=== PATIENT | female | born 1945 | race Caucasian/White ===

== ENCOUNTER 2018-10-02 15:20 | Observation (INO) | payer MEDICARE ==
[2018-10-02] MEDS ORDERED: Sodium Chloride 0.9% 500 ML IV ONE (16:24)
--- NOTE | 2018-10-02 16:54 | C.PDOC ---
History Of Present Illness 73-year-old female, presents to the emergency department, sent from PMD office for anemia. Patients hgb reported to be 6.8. Denies blood in stool. Patient denies hematemesis. No other complaints at this time Time Seen by Provider: 10/02/18 16:10 Chief Complaint (Nursing): Abnormal Labs History Per: Patient History/Exam Limitations: no limitations Past Medical History Reviewed: Historical Data, Nursing Documentation, Vital Signs Vital Signs: Last Vital Signs Temp 98.5 F 10/02/18 15:48 Pulse 77 10/02/18 15:48 Resp 18 10/02/18 15:48 BP 127/62 10/02/18 15:48 Pulse Ox 100 10/02/18 15:48 - Medical History PMH: Arthritis Family History: States: No Known Family Hx - Social History Hx Tobacco Use: No Hx Alcohol Use: No Hx Substance Use: No - Immunization History Hx Tetanus Toxoid Vaccination: No Hx Influenza Vaccination: Yes Hx Pneumococcal Vaccination: No Review Of Systems Constitutional: Negative for: Fever Cardiovascular: Negative for: Light Headedness Respiratory: Negative for: Shortness of Breath Gastrointestinal: Negative for: Nausea, Vomiting, Hematochezia, Hematemesis Skin: Negative for: Rash Neurological: Negative for: Weakness, Numbness, Headache, Dizziness Physical Exam - Physical Exam Appears: Non-toxic, No Acute Distress Skin: Warm, Dry, Pale, No Rash Head: Atraumatic Eye(s): bilateral: Normal Inspection Nose: Normal Oral Mucosa: Moist Lips: Normal Appearing Neck: Normal ROM Chest: Symmetrical Cardiovascular: Rhythm Regular, No Murmur Respiratory: Normal Breath Sounds, No Accessory Muscle Use Rectal: Heme Negative, Melena (sundeep) Extremity: Normal ROM, No Deformity Neurological/Psych: Oriented x3, Normal Speech ED Course And Treatment - Laboratory Results Result Diagrams: 10/03/18 07:37 10/02/18 17:30 O2 Sat by Pulse Oximetry: 100 Pulse Ox Interpretation: Normal (RA) Medical Decision Making Medical Decision Making: dark stool on exam, however ?suppliment iron from [facility]. guiac neg. macrocystic anemia. acute bleeding less likley. bun/cr normal. accpeted by dr forrester. Disposition - Disposition Disposition: HOSPITALIZED Disposition Time: 18:49 Condition: STABLE - Clinical Impression Clinical Impression: Anemia - Scribe Statement The provider has reviewed the documentation as recorded by the Scribe (mArit Solis) Provider Attestation: All medical record entries made by the Scribe were at my direction and personally dictated by me. I have reviewed the chart and agree that the record accurately reflects my personal performance of the history, physical exam, medical decision making, and the department course for this patient. I have also personally directed, reviewed, and agree with the discharge instructions and disposition. Decision To Admit - Pt Status Changed To: Hospital Disposition Of: Observation - . Bed Request Type: Regular Admitting Physician: Larisa Forrester Patient Diagnosis: Anemia
[2018-10-02 17:49] LABS: BASO % 0.6 % (0.0-2.0); EOS % 1.2 % (0.0-4.0); LYMPH # 1.6 K/uL (1.0-4.3); LYMPH % 47.6 % (20.0-40.0); MEAN CORPUSCULAR HEMOGLOBIN 39.9 pg (27.0-31.0); MEAN CORPUSCULAR HGB CONC 33.9 g/dL (33.0-37.0); MEAN PLATELET VOLUME 10.6 fL (7.2-11.7); MONO # 0.2 K/uL (0.0-0.8); MONO % 7.1 % (0.0-10.0); NEUT # 1.4 K/uL (1.8-7.0); NEUT % 43.5 % (50.0-75.0); NRBC % 0.1 % (0.0-2.0); RBC 1.73 Mil/uL (3.80-5.20); RED CELL DISTRIBUTION WIDTH 17.1 % (11.5-14.5); WHITE BLOOD COUNT 3.3 K/uL (4.8-10.8)
[2018-10-02 17:51] LABS: HEMOGLOBIN 6.9 g/dL (11.0-16.0); MEAN CELL VOLUME 117.7 fL (81.0-99.0)
[2018-10-02 18:09] LABS: ALB/GLOB RATIO 1.3 (1.0-2.1); ALBUMIN 3.8 g/dL (3.5-5.0); ALT/SGPT 34 U/L (9-52); AST/SGOT 37 U/L (14-36); BLOOD UREA NITROGEN 15 mg/dL (7-17); CALCIUM 8.4 mg/dl (8.6-10.4); GFR NON-AFRICAN AMERICAN > 60; LIPASE 40 U/L (23-300)
[2018-10-02 18:18] LABS: INR 1.1; PROTHROMBIN TIME 11.9 SECONDS (9.7-12.2)
--- NOTE | 2018-10-02 20:21 | CP.PCM.HP ---
Past Patient History - Past Social History Smoking Status: Never Smoked - MUSCULOSKELETAL/RHEUMATOLOGICAL Hx Arthritis: Yes - PSYCHIATRIC Hx Substance Use: No Meds Allergies/Adverse Reactions: Allergies Allergy/AdvReac Type Severity Reaction Status Date / Time No Known Allergies Allergy Verified 12/30/13 21:35 Physical Exam - Constitutional Appears: Well - Head Exam Head Exam: ATRAUMATIC, NORMAL INSPECTION, NORMOCEPHALIC - Eye Exam Eye Exam: EOMI, Normal appearance, PERRL Pupil Exam: NORMAL ACCOMODATION, PERRL - ENT Exam ENT Exam: Mucous Membranes Moist, Normal Exam - Neck Exam Neck exam: Positive for: Normal Inspection - Respiratory Exam Respiratory Exam: Decreased Breath Sounds - Cardiovascular Exam Cardiovascular Exam: REGULAR RHYTHM, +S1, +S2 - GI/Abdominal Exam GI & Abdominal Exam: Diminished Bowel Sounds, Soft - Rectal Exam Rectal Exam: Deferred Results - Vital Signs Recent Vital Signs: Last Vital Signs Temp 97.7 F 10/02/18 19:25 Pulse 67 10/02/18 19:25 Resp 20 10/02/18 19:25 BP 128/66 10/02/18 19:25 Pulse Ox 98 10/02/18 19:25 - Labs Result Diagrams: 10/02/18 17:30 10/02/18 17:30 Labs: Laboratory Results - last 24 hr 10/02/18 10/02/18 10/02/18 16:41 17:30 17:30 WBC 3.3 L D RBC 1.73 L Hgb 6.9 L D Hct 20.3 L MCV 117.7 H D MCH 39.9 H MCHC 33.9 RDW 17.1 H Plt Count 197 MPV 10.6 Neut % (Auto) 43.5 L Lymph % (Auto) 47.6 H [place] % (Auto) 7.1 Eos % (Auto) 1.2 Baso % (Auto) 0.6 Neut # (Auto) 1.4 L Lymph # (Auto) 1.6 [place] # (Auto) 0.2 Eos # (Auto) 0.0 Baso # (Auto) 0.0 Differential Comment PT 11.9 INR 1.1 APTT 31 Sodium Potassium Chloride Carbon Dioxide Anion Gap BUN Creatinine Est GFR ( Amer) Est GFR (Non-Af Amer) Random Glucose Calcium Total Bilirubin AST ALT Alkaline Phosphatase Troponin I Total Protein Albumin Globulin Albumin/Globulin Ratio Lipase Stool Occult Blood Negative Blood Type Antibody Screen 10/02/18 10/02/18 17:30 19:37 WBC RBC Hgb Hct MCV MCH MCHC RDW Plt Count MPV Neut % (Auto) Lymph % (Auto) [place] % (Auto) Eos % (Auto) Baso % (Auto) Neut # (Auto) Lymph # (Auto) [place] # (Auto) Eos # (Auto) Baso # (Auto) Differential Comment PT INR APTT Sodium 141 Potassium 4.2 Chloride 110 H Carbon Dioxide 24 Anion Gap 12 BUN 15 Creatinine 0.5 L Est GFR ( Amer) > 60 Est GFR (Non-Af Amer) > 60 Random Glucose 93 Calcium 8.4 L Total Bilirubin 0.4 AST 37 H ALT 34 Alkaline Phosphatase 69 Troponin I < 0.0120 Total Protein 6.8 Albumin 3.8 Globulin 3.0 Albumin/Globulin Ratio 1.3 Lipase 40 Stool Occult Blood Blood Type O POSITIVE Antibody Screen Negative
[2018-10-03 07:54] LABS: EOS # 0.1 K/uL (0.0-0.7); EOS % 2.5 % (0.0-4.0); HEMOGLOBIN 7.9 g/dL (11.0-16.0); LYMPH # 1.2 K/uL (1.0-4.3); LYMPH % 40.8 % (20.0-40.0); MEAN CELL VOLUME 111.1 fL (81.0-99.0); MEAN CORPUSCULAR HEMOGLOBIN 38.4 pg (27.0-31.0); MEAN CORPUSCULAR HGB CONC 34.6 g/dL (33.0-37.0); MEAN PLATELET VOLUME 10.7 fL (7.2-11.7); MONO # 0.3 K/uL (0.0-0.8); MONO % 9.6 % (0.0-10.0); NEUT # 1.3 K/uL (1.8-7.0); NEUT % 46.1 % (50.0-75.0); NRBC % 0.1 % (0.0-2.0); RBC 2.06 Mil/uL (3.80-5.20); WHITE BLOOD COUNT 2.9 K/uL (4.8-10.8)
[2018-10-03 08:08] LABS: IRON 236 ug/dL (37-170)
[2018-10-03 08:18] LABS: % IRON SATURATION 84 (20-55); TOTAL IRON BINDING CAPACITY 281 ug/dL (250-450)
[2018-10-03] MEDS: Pantoprazole 40 mg EC Tab PO SCH (10:19)
[2018-10-03 11:37] LABS: CK-MB 0.48 ng/mL (0.0-3.38)
--- NOTE | 2018-10-03 16:09 | CP.PCM.PN ---
Subjective - Date & Time of Evaluation Date of Evaluation: 10/03/18 Time of Evaluation: 11:15 - Subjective Subjective: clinically same Objective - Vital Signs/Intake and Output Vital Signs (last 24 hours): Temp Pulse Resp BP Pulse Ox 98.3 F 74 18 112/64 96 10/03/18 13:20 10/03/18 13:20 10/03/18 13:20 10/03/18 13:20 10/03/18 13:20 Intake and Output: 10/03/18 10/03/18 06:59 18:59 Intake Total 402 360 Balance 402 360 - Medications Medications: Current Medications Cyanocobalamin (Vitamin B12 1000 Mcg/Ml Inj) 1,000 mcg IM DAILY [facility] Isosorbide Mononitrate (Imdur Er) 30 mg PO DAILY [facility] Last Admin: 10/03/18 10:19 Dose: 30 mg Meclizine HCl (Antivert) 25 mg PO Q6 PRN PRN Reason: Dizziness Last Admin: 10/03/18 10:19 Dose: 25 mg Pantoprazole Sodium (Protonix Ec Tab) 40 mg PO DAILY [facility] Last Admin: 10/03/18 10:19 Dose: 40 mg - Labs Labs: 10/03/18 07:37 10/02/18 17:30 PT 11.9 SECONDS (9.7-12.2) 10/02/18 17:30 INR 1.1 10/02/18 17:30 APTT 31 SECONDS (21-34) 10/02/18 17:30 - Constitutional Appears: Well - Head Exam Head Exam: ATRAUMATIC, NORMAL INSPECTION, NORMOCEPHALIC - Eye Exam Eye Exam: EOMI, Normal appearance, PERRL Pupil Exam: NORMAL ACCOMODATION, PERRL - ENT Exam ENT Exam: Mucous Membranes Moist, Normal Exam - Neck Exam Neck Exam: Full ROM, Normal Inspection. absent: Lymphadenopathy - Respiratory Exam Respiratory Exam: Decreased Breath Sounds - Cardiovascular Exam Cardiovascular Exam: REGULAR RHYTHM, +S1, +S2 - GI/Abdominal Exam GI & Abdominal Exam: Soft, Diminished Bowel Sounds - Rectal Exam Rectal Exam: Deferred
[2018-10-03 16:34] VITALS: RESP 20
--- NOTE | 2018-10-03 21:40 | CARD ---
APPROVED REPORT Date of service: 10/02/2018 EKG Measurement Heart [id number] <Conclusion> Sinus rhythm with 1st degree AV block Otherwise normal ECG
[2018-10-04 00:42] LABS: SQUAMOUS EPITHIAL 2 /hpf (0-5); URINE BACTERIA MOD (<OCC); URINE BILIRUBIN NEGATIVE (NEGATIVE); URINE BLOOD NEGATIVE (NEGATIVE); URINE CLARITY Clear (Clear); URINE COLOR Yellow (YELLOW); URINE GLUCOSE (UA) NORMAL (Normal); URINE LEUKOCYTE ESTERASE 1+ Leu/uL (Negative); URINE PROTEIN NEGATIVE (NEGATIVE); URINE UROBILINOGEN NORMAL mg/dL (0.2-1.0)
[2018-10-04 08:13] VITALS: O2SAT 97
[2018-10-04] MEDS: Pantoprazole 40 mg EC Tab PO SCH (09:31)
[2018-10-04 12:40] LABS: BASO % 0.7 % (0.0-2.0); EOS % 1.1 % (0.0-4.0); HEMOGLOBIN 9.3 g/dL (11.0-16.0); LYMPH # 1.5 K/uL (1.0-4.3); LYMPH % 46.6 % (20.0-40.0); MEAN CORPUSCULAR HEMOGLOBIN 36.8 pg (27.0-31.0); MEAN CORPUSCULAR HGB CONC 34.5 g/dL (33.0-37.0); MEAN PLATELET VOLUME 10.7 fL (7.2-11.7); MONO # 0.3 K/uL (0.0-0.8); MONO % 9.8 % (0.0-10.0); NEUT # 1.4 K/uL (1.8-7.0); NEUT % 41.8 % (50.0-75.0); NRBC % 0.2 % (0.0-2.0); RBC 2.53 Mil/uL (3.80-5.20); WHITE BLOOD COUNT 3.3 K/uL (4.8-10.8)
[2018-10-04 12:51] LABS: MEAN CELL VOLUME 106.6 fL (81.0-99.0)
[2018-10-04 12:54] LABS: ALB/GLOB RATIO 1.3 (1.0-2.1); ALT/SGPT 34 U/L (9-52); AST/SGOT 25 U/L (14-36); BLOOD UREA NITROGEN 13 mg/dL (7-17); CALCIUM 8.4 mg/dl (8.6-10.4); GFR NON-AFRICAN AMERICAN > 60
[2018-10-04 16:07] VITALS: BP 101/60; PULSE 66; TEMP 98
--- NOTE | 2018-10-04 23:50 | CARD ---
APPROVED REPORT Date of service: 10/03/2018 EKG Measurement Heart [id number] <Conclusion> Sinus rhythm with 1st degree AV block Otherwise normal ECG
--- NOTE | 2018-10-06 17:20 | CP.PCM.CON ---
History of Present Illness - History of Present Illness History of Present Illness: 73 year old female with a history of GERD, admitted with anemia. The patient states she was told by her PMD to come to the hospital for severe anemia. She does admit to progressive fatigue but denies shortness of breath and chest pain. She is s/p PRBC transfusion and reports to feeling better. She denies abnormal bleeding and bruising. Past medical history: GERD Past surgical history: Denies Family history: Denies hematologic and oncologic problems Social history: Denies tobacco, alcohol, and illicit drug use Allergies: NKA Review of systems: All remaining review of systems including HEENT, cardiovascular, respiratory, gasrtointestinal, genitourinary, musculoskeletal, dermatologic, neurologic, and psychiatric are negative unless mentioned in the HPI. Past Patient History - Past Social History Smoking Status: Never Smoked - MUSCULOSKELETAL/RHEUMATOLOGICAL Hx Arthritis: Yes - PSYCHIATRIC Hx Substance Use: No Meds Allergies/Adverse Reactions: Allergies Allergy/AdvReac Type Severity Reaction Status Date / Time No Known Allergies Allergy Verified 12/30/13 21:35 Physical Exam - Head Exam Head Exam: ATRAUMATIC - Eye Exam Eye Exam: Normal appearance - ENT Exam ENT Exam: Mucous Membranes Dry - Respiratory Exam Respiratory Exam: NORMAL BREATHING PATTERN - Cardiovascular Exam Cardiovascular Exam: +S1, +S2 - GI/Abdominal Exam GI & Abdominal Exam: Normal Bowel Sounds - Extremities Exam Extremities exam: Positive for: normal inspection - Neurological Exam Neurological exam: Oriented x3 - Psychiatric Exam Psychiatric exam: Normal Affect, Normal Mood - Skin Skin Exam: Warm Results - Vital Signs Recent Vital Signs: Last Vital Signs Temp 98.0 F 10/04/18 15:00 Pulse 66 10/04/18 15:00 Resp 20 10/04/18 15:00 BP 101/60 10/04/18 15:00 Pulse Ox 97 10/04/18 15:00 - Labs Result Diagrams: 10/04/18 12:16 10/04/18 12:16 Assessment & Plan (1) Anemia Assessment and Plan: borderline b12 stores - will give IM b12 s/p PRBC transfusion support Status: Acute (2) Leukopenia Assessment and Plan: with mild neutropenia cont. to monitor. Thank you for this interesting consult. Status: Acute
== END 2018-10-04 17:46 | disposition home or self-care (01) ==
LOC: C.ER 15:20 → C.6T 18:13 → C.9E 18:41 → C.6T 19:17 → C.9E 19:19 → C.6T 19:20
PROVIDERS: ADMIT Internal Medicine Nephrology; ATTEND Internal Medicine Nephrology
DX: D64.9 Anemia, unspecified (principal); D72.819 Decreased white blood cell count, unspecified; K21.9 Gastro-esophageal reflux disease without esophagitis; M19.90 Unspecified osteoarthritis, unspecified site
CPT/HCPCS: 36415; 36430; 80053; 81001; 82607; 82728; 82747; 83540; 83550; 83690; 84443; 84484; 85025; 85044; 85610; 85730; 86850; 86900; 86920; 93005; 96360; 96374; 97116; 97161; 99283; C9113; G0328; G0378; G8978; G8979; G8980; J3420; J7040; P9051

== ENCOUNTER 2018-10-25 14:52 | Inpatient (IN) | payer MEDICARE ==
[2018-10-25 16:03] LABS: BASO % 0.7 % (0.0-2.0); EOS # 0.1 K/uL (0.0-0.7); EOS % 1.8 % (0.0-4.0); HEMOGLOBIN 7.6 g/dL (11.0-16.0); LYMPH # 1.5 K/uL (1.0-4.3); LYMPH % 45.7 % (20.0-40.0); MEAN CORPUSCULAR HEMOGLOBIN 36.9 pg (27.0-31.0); MEAN CORPUSCULAR HGB CONC 34.2 g/dL (33.0-37.0); MEAN PLATELET VOLUME 10.3 fL (7.2-11.7); MONO # 0.3 K/uL (0.0-0.8); MONO % 8.3 % (0.0-10.0); NEUT # 1.5 K/uL (1.8-7.0); NEUT % 43.5 % (50.0-75.0); NRBC % 0.2 % (0.0-2.0); RBC 2.06 Mil/uL (3.80-5.20); RED CELL DISTRIBUTION WIDTH 24.9 % (11.5-14.5); WHITE BLOOD COUNT 3.4 K/uL (4.8-10.8)
[2018-10-25 16:13] LABS: INR 1.1; PROTHROMBIN TIME 12.4 SECONDS (9.7-12.2)
--- NOTE | 2018-10-25 16:16 | C.PDOC ---
History Of Present Illness 73yo female, with recently diagnosed anemia and currently taking iron, comes to ER for evaluation after abnormal lab results. Patient had an outpatient blood test done on 10/21 which indicated hemoglobin of 7.7. Currently, patient has no medical complaints and denies any chest pain, shortness of breath or weakness. No additional complaints. Time Seen by Provider: 10/25/18 15:28 Chief Complaint (Nursing): Abnormal Labs History Per: Patient History/Exam Limitations: no limitations Past Medical History Reviewed: Historical Data, Nursing Documentation, Vital Signs Vital Signs: Last Vital Signs Temp 98.4 F 10/25/18 15:00 Pulse 79 10/25/18 15:00 Resp 16 10/25/18 15:00 BP 127/75 10/25/18 15:00 Pulse Ox 97 10/25/18 15:00 - Medical History PMH: Anemia, Arthritis Surgical History: Appendectomy Family History: States: No Known Family Hx - Social History Hx Tobacco Use: No Hx Alcohol Use: No Hx Substance Use: No - Immunization History Hx Tetanus Toxoid Vaccination: No Hx Influenza Vaccination: Yes (2018) Hx Pneumococcal Vaccination: No Review Of Systems Constitutional: Negative for: Weakness Cardiovascular: Negative for: Chest Pain Respiratory: Negative for: Shortness of Breath Physical Exam - Physical Exam Appears: Non-toxic, No Acute Distress Skin: Normal Color, Warm, Dry Head: Atraumatic, Normacephalic Eye(s): bilateral: Normal Inspection, PERRL, EOMI, Conjunctiva Pale (minimal) Neck: Supple Chest: Symmetrical Cardiovascular: Rhythm Regular Respiratory: Normal Breath Sounds Gastrointestinal/Abdominal: Normal Exam, Soft Extremity: Normal ROM Neurological/Psych: Oriented x3 ED Course And Treatment - Laboratory Results Result Diagrams: 10/25/18 15:53 10/25/18 15:53 O2 Sat by Pulse Oximetry: 97 (RA) Pulse Ox Interpretation: Normal Progress Note: Labs ordered. Occult stool test ordered. 1728 Occult stool negative. Blood transfusion consent obtained. Nursing order placed for packed red cell administration. 1816 Case discussed with , patient admitted under his service. Disposition - Disposition Forms: Versie [facility] Companion (Syriac) - Scribe Statement The provider has reviewed the documentation as recorded by the Stephanyibe Bev Pichardo Provider Attestation: All medical record entries made by the Scribe were at my direction and personally dictated by me. I have reviewed the chart and agree that the record accurately reflects my personal performance of the history, physical exam, medical decision making, and the department course for this patient. I have also personally directed, reviewed, and agree with the discharge instructions and disposition.
[2018-10-25 16:27] LABS: ALB/GLOB RATIO 1.1 (1.0-2.1); ALT/SGPT 27 U/L (9-52); AST/SGOT 33 U/L (14-36); BLOOD UREA NITROGEN 22 mg/dL (7-17); CALCIUM 8.5 mg/dl (8.6-10.4); GFR NON-AFRICAN AMERICAN > 60
[2018-10-25 22:47] LABS: SQUAMOUS EPITHIAL 3 /hpf (0-5); URINE BACTERIA OCC (<OCC); URINE BILIRUBIN NEGATIVE (NEGATIVE); URINE BLOOD NEGATIVE (NEGATIVE); URINE CLARITY Clear (Clear); URINE COLOR Yellow (YELLOW); URINE GLUCOSE (UA) NORMAL (Normal); URINE LEUKOCYTE ESTERASE NEG Leu/uL (Negative); URINE PROTEIN NEGATIVE (NEGATIVE); URINE UROBILINOGEN NORMAL mg/dL (0.2-1.0)
--- NOTE | 2018-10-25 23:56 | CP.PCM.HP ---
Past Patient History - Past Social History Smoking Status: Never Smoked - ENDOCRINE/METABOLIC Hx Endocrine Disorders: Yes Other/Comment: "Thyroid surgery'' - HEMATOLOGICAL/ONCOLOGICAL Hx Anemia: Yes - MUSCULOSKELETAL/RHEUMATOLOGICAL Hx Falls: No - PSYCHIATRIC Hx Substance Use: No - SURGICAL HISTORY Hx Appendectomy: Yes - ANESTHESIA Hx Anesthesia: Yes Hx Anesthesia Reactions: No Meds Allergies/Adverse Reactions: Allergies Allergy/AdvReac Type Severity Reaction Status Date / Time No Known Allergies Allergy Verified 10/25/18 14:58 Results - Vital Signs Recent Vital Signs: Last Vital Signs Temp 98.1 F 10/25/18 18:45 Pulse 67 10/25/18 18:45 Resp 16 10/25/18 18:45 BP 102/56 L 10/25/18 18:45 Pulse Ox 98 10/25/18 18:45 - Labs Result Diagrams: 10/25/18 15:53 10/25/18 15:53 Labs: Laboratory Results - last 24 hr 10/25/18 10/25/18 10/25/18 15:53 15:53 15:53 WBC 3.4 L RBC 2.06 L Hgb 7.6 L Hct 22.3 L MCV 108.0 H MCH 36.9 H MCHC 34.2 RDW 24.9 H Plt Count 213 MPV 10.3 Neut % (Auto) 43.5 L Lymph % (Auto) 45.7 H [place] % (Auto) 8.3 Eos % (Auto) 1.8 Baso % (Auto) 0.7 Neut # (Auto) 1.5 L Lymph # (Auto) 1.5 [place] # (Auto) 0.3 Eos # (Auto) 0.1 Baso # (Auto) 0.0 PT 12.4 H INR 1.1 APTT 29 Sodium 138 Potassium 4.6 Chloride 107 Carbon Dioxide 22 Anion Gap 13 BUN 22 H Creatinine 0.5 L Est GFR ( Amer) > 60 Est GFR (Non-Af Amer) > 60 Random Glucose 102 Calcium 8.5 L Total Bilirubin 0.9 AST 33 ALT 27 Alkaline Phosphatase 78 Total Protein 7.5 Albumin 4.0 Globulin 3.5 Albumin/Globulin Ratio 1.1 TSH 3rd Generation Urine Color Urine Clarity Urine pH Ur Specific [place] Urine Protein Urine Glucose (UA) Urine Ketones Urine Blood Urine Nitrate Urine Bilirubin Urine Urobilinogen Ur Leukocyte Esterase Urine WBC (Auto) Urine RBC (Auto) Ur Squamous Epith Cells Urine Bacteria Stool Occult Blood Blood Type Antibody Screen 10/25/18 10/25/18 10/25/18 17:12 17:33 19:35 WBC RBC Hgb Hct MCV MCH MCHC RDW Plt Count MPV Neut % (Auto) Lymph % (Auto) [place] % (Auto) Eos % (Auto) Baso % (Auto) Neut # (Auto) Lymph # (Auto) [place] # (Auto) Eos # (Auto) Baso # (Auto) PT INR APTT Sodium Potassium Chloride Carbon Dioxide Anion Gap BUN Creatinine Est GFR ( Amer) Est GFR (Non-Af Amer) Random Glucose Calcium Total Bilirubin AST ALT Alkaline Phosphatase Total Protein Albumin Globulin Albumin/Globulin Ratio TSH 3rd Generation 1.34 Urine Color Urine Clarity Urine pH Ur Specific [place] Urine Protein Urine Glucose (UA) Urine Ketones Urine Blood Urine Nitrate Urine Bilirubin Urine Urobilinogen Ur Leukocyte Esterase Urine WBC (Auto) Urine RBC (Auto) Ur Squamous Epith Cells Urine Bacteria Stool Occult Blood Negative Blood Type O POSITIVE Antibody Screen Positive 10/25/18 10/25/18 22:36 22:36 WBC RBC Hgb Hct MCV MCH MCHC RDW Plt Count MPV Neut % (Auto) Lymph % (Auto) [place] % (Auto) Eos % (Auto) Baso % (Auto) Neut # (Auto) Lymph # (Auto) [place] # (Auto) Eos # (Auto) Baso # (Auto) PT INR APTT Sodium Potassium Chloride Carbon Dioxide Anion Gap BUN Creatinine Est GFR ( Amer) Est GFR (Non-Af Amer) Random Glucose Calcium Total Bilirubin AST ALT Alkaline Phosphatase Total Protein Albumin Globulin Albumin/Globulin Ratio TSH 3rd Generation Urine Color Yellow Urine Clarity Clear Urine pH 6.0 Ur Specific [place] 1.013 Urine Protein Negative Urine Glucose (UA) Normal Urine Ketones Negative Urine Blood Negative Urine Nitrate Negative Urine Bilirubin Negative Urine Urobilinogen Normal Ur Leukocyte Esterase Neg Urine WBC (Auto) 1 Urine RBC (Auto) < 1 Ur Squamous Epith Cells 3 Urine Bacteria Occ H Stool Occult Blood Negative Blood Type Antibody Screen
--- NOTE | 2018-10-26 04:15 | HP ---
CHIEF COMPLAINT: Low blood count. HISTORY OF PRESENT ILLNESS: This is a 73-year-old female with a history of anemia in the past. She has a history of hospitalization in the past for anemia and blood transfusion. She was referred to emergency room by her PMD for low hemoglobin. According to the patient, she is weak, she is fatigued, tired. She gets some ambulation. She denied any chest pain. The patient has a history of several blood transfusions in the past. She denies any vaginal bleed. She denies any hematemesis, melena, or hematochezia. She denies any history of hemoptysis. She denies any abdominal pain, nausea, or vomiting. She denies any cough, sore throat, or running nose. She has a goiter and according to the patients, she was told no further treatment or checkup needs to be done. She denies any history of malignancy. She denies any history of alcohol use, aspirin use, or any other ukhu-aos-lztyueo pain medications. The patient denies any history of bruising. She denies any history of heart problems. She denies any history of rectal pain or bleeding per rectum. She denies any joint back, hip pain, or back pain. There is no history of polyuria, polydipsia, or polyphagia. She denies history of sneezing, itchy eyes, or itchy nose. There is no history of trauma or loss of consciousness. PAST MEDICAL HISTORY: 1. Anemia, etiology unclear. 2. The patient does not recall any history of GI workup in the past. PLAN: Admit. Detailed orders are written. Seen and examined. Carlos Urena MD
[2018-10-26] MEDS ORDERED: Enoxaparin 40 mg Syringe SC SCH (10:00)
[2018-10-26 11:16] LABS: MEAN CORPUSCULAR HEMOGLOBIN 35.7 pg (27.0-31.0); MEAN CORPUSCULAR HGB CONC 35.3 g/dL (33.0-37.0); MEAN PLATELET VOLUME 10.2 fL (7.2-11.7); RBC 2.75 Mil/uL (3.80-5.20); RED CELL DISTRIBUTION WIDTH 24.7 % (11.5-14.5); WHITE BLOOD COUNT 3.9 K/uL (4.8-10.8)
[2018-10-26 11:18] LABS: HEMOGLOBIN 9.8 g/dL (11.0-16.0); MEAN CELL VOLUME 101.3 fL (81.0-99.0)
[2018-10-26 11:32] LABS: BLOOD UREA NITROGEN 18 mg/dL (7-17); CALCIUM 8.4 mg/dl (8.6-10.4); GFR NON-AFRICAN AMERICAN > 60
[2018-10-26 11:41] LABS: FREE T4 0.96 ng/dL (0.78-2.19)
--- NOTE | 2018-10-26 12:22 | US ---
Thyroid ultrasound HISTORY: Goiter. Comparison: None available. Technique: Real-time sonography was performed through the thyroid. Findings: Right lobe: 4.8 x 1.3 x 1.3 centimeters. Heterogeneous echotexture. Increased flow. Midpole predominantly echogenic nodule measuring 1.1 x 0.5 x 0.8 centimeters. Thyroid isthmus measures 4 millimeters. Echogenic calcification/calcified nodule measuring 5 x 2 x 4 millimeters seen within the thyroid isthmus. Left lobe: 8.1 x 5.0 x 6.0 centimeters. Heterogeneous echotexture. Increased flow. Large complex heterogeneous solid/cystic nodule/mass largely replacing the left lobe with associated large lobulated calcifications measuring 6.7 x 4.9 x 5.8 centimeters with calcifications measuring up to 2.8 x 0.5 x 2.6 centimeters. Impression: Multinodular goitrous thyroid gland. Large complex heterogeneous nodule/mass with calcifications seen in the left thyroid gland measuring up to 6.7 centimeters. Clinical correlation. Additional nodules as described above. A preliminary report was generated at 9:14 p.m. on 10/25/[address] Jared Rene from [employer].
[2018-10-26 12:29] LABS: FOLATE > 20.0 ng/mL
--- NOTE | 2018-10-26 20:11 | CP.PCM.PN ---
Subjective - Subjective Subjective: dictated Objective - Vital Signs/Intake and Output Vital Signs (last 24 hours): Temp Pulse Resp BP Pulse Ox 98.5 F 68 20 127/72 94 L 10/26/18 15:55 10/26/18 15:55 10/26/18 15:55 10/26/18 15:55 10/26/18 15:55 Intake and Output: 10/26/18 10/27/18 18:59 06:59 Intake Total 1625 Balance 1625 - Medications Medications: Current Medications Acetaminophen (Tylenol 325mg Tab) 650 mg PO ONCE PRN PRN Reason: Fever >100.4 F Last Admin: 10/26/18 01:10 Dose: 650 mg Famotidine (Pepcid) 20 mg PO BID [facility] Last Admin: 10/26/18 17:06 Dose: 20 mg Influenza Virus Vaccine (Fluzone Quad [id number]) 60 mcg IM .ONCE ONE Stop: 10/27/18 10:01 Pneumococcal Polyvalent Vaccine (Pneumovax 23 Vaccine) 0.5 ml IM .ONCE ONE Stop: 10/27/18 10:01 - Labs Labs: 10/26/18 11:02 10/26/18 11:02 PT 12.4 SECONDS (9.7-12.2) H 10/25/18 15:53 INR 1.1 10/25/18 15:53 APTT 29 SECONDS (21-34) 10/25/18 15:53
--- NOTE | 2018-10-26 20:22 | CP.PCM.CON ---
History of Present Illness - History of Present Illness History of Present Illness: 73 year old female with a history of GERD, presenting from her PMD with abdnormal labs, found to be anemic. She is known to me from a similar admission earlier this month and was found to have borderline B12 stores and started on IM B12. The patient states she was told by her PMD to come to the hospital for severe anemia. She does admit to progressive fatigue but denies shortness of breath and chest pain. She is s/p PRBC transfusion and reports to feeling better. She denies abnormal bleeding and bruising. Past medical history: GERD Past surgical history: Denies Family history: Denies hematologic and oncologic problems Social history: Denies tobacco, alcohol, and illicit drug use Allergies: NKA Review of systems: All remaining review of systems including HEENT, cardiovascular, respiratory, gasrtointestinal, genitourinary, musculoskeletal, dermatologic, neurologic, and psychiatric are negative unless mentioned in the HPI. Past Patient History - Past Social History Smoking Status: Never Smoked - ENDOCRINE/METABOLIC Hx Endocrine Disorders: Yes Other/Comment: "Thyroid surgery'' - HEMATOLOGICAL/ONCOLOGICAL Hx Anemia: Yes - MUSCULOSKELETAL/RHEUMATOLOGICAL Hx Falls: No - PSYCHIATRIC Hx Substance Use: No - SURGICAL HISTORY Hx Appendectomy: Yes - ANESTHESIA Hx Anesthesia: Yes Hx Anesthesia Reactions: No Meds Allergies/Adverse Reactions: Allergies Allergy/AdvReac Type Severity Reaction Status Date / Time No Known Allergies Allergy Verified 10/25/18 14:58 - Medications Medications: Current Medications Acetaminophen (Tylenol 325mg Tab) 650 mg PO ONCE PRN PRN Reason: Fever >100.4 F Last Admin: 10/26/18 01:10 Dose: 650 mg Famotidine (Pepcid) 20 mg PO BID [facility] Last Admin: 10/26/18 17:06 Dose: 20 mg Influenza Virus Vaccine (Fluzone Quad [id number]) 60 mcg IM .ONCE ONE Stop: 10/27/18 10:01 Pneumococcal Polyvalent Vaccine (Pneumovax 23 Vaccine) 0.5 ml IM .ONCE ONE Stop: 10/27/18 10:01 Physical Exam - Head Exam Head Exam: ATRAUMATIC - Eye Exam Eye Exam: Normal appearance - ENT Exam ENT Exam: Mucous Membranes Dry - Respiratory Exam Respiratory Exam: NORMAL BREATHING PATTERN - Cardiovascular Exam Cardiovascular Exam: +S1, +S2 - GI/Abdominal Exam GI & Abdominal Exam: Normal Bowel Sounds - Extremities Exam Extremities exam: Positive for: normal inspection - Neurological Exam Neurological exam: Oriented x3 - Psychiatric Exam Psychiatric exam: Normal Affect, Normal Mood - Skin Skin Exam: Warm Results - Vital Signs Recent Vital Signs: Last Vital Signs Temp 98.5 F 10/26/18 15:55 Pulse 68 10/26/18 15:55 Resp 20 10/26/18 15:55 BP 127/72 10/26/18 15:55 Pulse Ox 94 L 10/26/18 15:55 - Labs Result Diagrams: 10/26/18 11:02 10/26/18 11:02 Labs: Laboratory Results - last 24 hr 10/25/18 10/25/18 10/25/18 17:12 19:35 22:36 WBC RBC Hgb Hct MCV MCH MCHC RDW Plt Count MPV Retic Count Sodium Potassium Chloride Carbon Dioxide Anion Gap BUN Creatinine Est GFR ( Amer) Est GFR (Non-Af Amer) Random Glucose Calcium Ferritin Vitamin B12 Folate Free T4 TSH 3rd Generation 1.34 Urine Color Urine Clarity Urine pH Ur Specific [place] Urine Protein Urine Glucose (UA) Urine Ketones Urine Blood Urine Nitrate Urine Bilirubin Urine Urobilinogen Ur Leukocyte Esterase Urine WBC (Auto) Urine RBC (Auto) Ur Squamous Epith Cells Urine Bacteria Stool Occult Blood Negative Blood Type O POSITIVE Antibody Screen Positive Antibody Identification Anti K 10/25/18 10/26/18 10/26/18 22:36 11:02 11:02 WBC 3.9 L RBC 2.75 L Hgb 9.8 L D Hct 27.8 L MCV 101.3 H D MCH 35.7 H MCHC 35.3 RDW 24.7 H Plt Count 177 MPV 10.2 Retic Count 1.6 H Sodium 138 Potassium 4.4 Chloride 105 Carbon Dioxide 24 Anion Gap 13 BUN 18 H Creatinine 0.5 L Est GFR ( Amer) > 60 Est GFR (Non-Af Amer) > 60 Random Glucose 106 H Calcium 8.4 L Ferritin 666.0 Vitamin B12 349 Folate > 20.0 Free T4 TSH 3rd Generation Urine Color Yellow Urine Clarity Clear Urine pH 6.0 Ur Specific [place] 1.013 Urine Protein Negative Urine Glucose (UA) Normal Urine Ketones Negative Urine Blood Negative Urine Nitrate Negative Urine Bilirubin Negative Urine Urobilinogen Normal Ur Leukocyte Esterase Neg Urine WBC (Auto) 1 Urine RBC (Auto) < 1 Ur Squamous Epith Cells 3 Urine Bacteria Occ H Stool Occult Blood Blood Type Antibody Screen Antibody Identification 10/26/18 11:02 WBC RBC Hgb Hct MCV MCH MCHC RDW Plt Count MPV Retic Count Sodium Potassium Chloride Carbon Dioxide Anion Gap BUN Creatinine Est GFR ( Amer) Est GFR (Non-Af Amer) Random Glucose Calcium Ferritin Vitamin B12 Folate Free T4 0.96 TSH 3rd Generation 1.25 Urine Color Urine Clarity Urine pH Ur Specific [place] Urine Protein Urine Glucose (UA) Urine Ketones Urine Blood Urine Nitrate Urine Bilirubin Urine Urobilinogen Ur Leukocyte Esterase Urine WBC (Auto) Urine RBC (Auto) Ur Squamous Epith Cells Urine Bacteria Stool Occult Blood Blood Type Antibody Screen Antibody Identification Assessment & Plan (1) Anemia Assessment and Plan: 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 Status: Acute
--- NOTE | 2018-10-27 01:09 | PN ---
DATE: 10/26/2018 SUBJECTIVE: The patient is afebrile. Status post blood transfusion. H and H have gone up. PHYSICAL EXAMINATION VITAL SIGNS: Blood pressure 127/72, pulse 68, respiratory rate 20, temperature 98.5. LUNGS: Clear. No rales or rhonchi. CARDIOVASCULAR SYSTEM: S1 and S2 regular. No heave noted. ABDOMEN: Soft and nontender. Bowel sounds positive. ASSESSMENT: 1. Rule out gastrointestinal bleed. The patient has a history of recurrent blood transfusion. It is not apparent if she ever had any gastrointestinal workup in the past. The patient has been seen by Hematology. Apparently, the patient has a diagnosis of hypoproliferative electrolyte response. In the meantime, we will follow up monoclonal routine, FOBT. 2. Multinodular goiter. 3. Anemia, etiology questionable. 4. Left lower quadrant abdominal pain. Urinalysis is negative. PLAN: Continue current medication. Monitor the patient. Carlos Urena MD
[2018-10-27 07:24] LABS: HEMOGLOBIN 10.1 g/dL (11.0-16.0); MEAN CELL VOLUME 101.3 fL (81.0-99.0); MEAN CORPUSCULAR HEMOGLOBIN 34.9 pg (27.0-31.0); MEAN CORPUSCULAR HGB CONC 34.5 g/dL (33.0-37.0); RBC 2.88 Mil/uL (3.80-5.20); RED CELL DISTRIBUTION WIDTH 24.7 % (11.5-14.5); WHITE BLOOD COUNT 2.7 K/uL (4.8-10.8)
[2018-10-27 07:46] LABS: BLOOD UREA NITROGEN 17 mg/dL (7-17); CALCIUM 8.5 mg/dl (8.6-10.4); GFR NON-AFRICAN AMERICAN > 60
[2018-10-27 08:17] LABS: MCH 36.1 pg (27.0-33.0); MCV 116.4 fL (80.0-100.0)
[2018-10-27] MEDS ORDERED: Influenza Vaccine 60 MCG/0.5 ML SYR (3 yr & up) IM ONE (10:00)
[2018-10-27] MEDS ORDERED: Pneumococcal 23-Valent Vaccine IM ONE (10:00)
[2018-10-27] MEDS ORDERED: Bisacodyl 5mg EC Tab PO ONE (11:00)
--- NOTE | 2018-10-27 12:25 | PN ---
DATE: 10/27/2018 LOCATION: 368, bed A. SUBJECTIVE: This is a 73-year-old female, seen and examined initially for GI consultation on 10/26/2018, and reexamined again today. Appeared to be awake, alert and oriented with reported intermittent period of abdominal pain as per [place]ian-speaking staff. The entire chart is reviewed including but not limited to the most recent lab and radiology study results, current and the previous medication list, current and the previous medical events. The patient denied any chest pain, palpitation or vomiting, but nausea and dyspepsia with mild generalized weakness and malaise. No reported chills or fever. The entire chart is reviewed including but not limited to the most recent lab and radiology study results, current and the previous medication list, current and the previous medical events. Today's lab showed hemoglobin of 10.1, hematocrit 29.2 post blood transfusion with normal platelet count, but low white blood cells 2.7 with low indices highly suggestive of hypochromic microcytic anemia. Calcium is 8.5, creatinine of 0.5 with normal BUN. Stool for occult blood for today is still pending. PHYSICAL EXAMINATION: GENERAL: A 73-year-old female, appeared to be awake, alert, oriented. VITAL SIGNS: Afebrile with pulse of 72, respiratory rate 18 to 20, blood pressure 120/74. HEENT: Pale dry oral mucoid membrane. Nonicteric sclerae. LUNGS: Few scattered crepitation. Decreased air entry at bases. HEART: Positive S1 and S2. ABDOMEN: Soft with midepigastric and midabdominal tenderness. No mass or organomegaly, no rebound tenderness or guarding. EXTREMITIES: Without significant clubbing, cyanosis or edema. NEUROLOGIC: No reported neurological deficit, sensory or motor. IMPRESSION: 1. Hypochromic microcytic anemia, to rule out upper versus lower gastrointestinal blood loss. 2. Occult gastrointestinal malignancy. 3. Known history of osteoarthritis. 4. Status post appendectomy, by history. SUGGESTIONS: 1. Agree with your plan. 2. Cancer markers. 3. Endoscopic evaluation of the GI tract when the patient is more stable clinically. 4. Further recommendation to follow. Dusty Goodman MD
--- NOTE | 2018-10-27 19:31 | CP.PCM.PN ---
Subjective - Date & Time of Evaluation Date of Evaluation: 10/27/18 Time of Evaluation: 19:00 - Subjective Subjective: No complaints. Objective - Vital Signs/Intake and Output Vital Signs (last 24 hours): Temp Pulse Resp BP Pulse Ox 98.6 F 60 20 110/67 95 10/27/18 17:11 10/27/18 17:11 10/27/18 17:11 10/27/18 17:11 10/27/18 17:11 Intake and Output: 10/27/18 10/28/18 18:59 06:59 Intake Total 480 Balance 480 - Medications Medications: Current Medications Acetaminophen (Tylenol 325mg Tab) 650 mg PO ONCE PRN PRN Reason: Fever >100.4 F Last Admin: 10/26/18 01:10 Dose: 650 mg Famotidine (Pepcid) 20 mg PO BID [facility] Last Admin: 10/27/18 17:08 Dose: 20 mg Magnesium Citrate (Citrate Of Mag) 120 ml PO ONCE ONE Stop: 10/27/18 20:01 - Labs Labs: 10/27/18 07:12 10/27/18 07:12 PT 12.4 SECONDS (9.7-12.2) H 10/25/18 15:53 INR 1.1 10/25/18 15:53 APTT 29 SECONDS (21-34) 10/25/18 15:53 - Head Exam Head Exam: ATRAUMATIC - Eye Exam Eye Exam: Normal appearance - ENT Exam ENT Exam: Mucous Membranes Dry - Respiratory Exam Respiratory Exam: NORMAL BREATHING PATTERN - Cardiovascular Exam Cardiovascular Exam: +S1, +S2 - GI/Abdominal Exam GI & Abdominal Exam: Normal Bowel Sounds Assessment and Plan (1) Anemia Assessment & Plan: 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
[2018-10-27] MEDS ORDERED: Magnesium Citrate Oral SOL (300 ml) PO ONE (20:00)
--- NOTE | 2018-10-27 21:49 | CP.PCM.PN ---
Subjective - Subjective Subjective: dictated Objective - Vital Signs/Intake and Output Vital Signs (last 24 hours): Temp Pulse Resp BP Pulse Ox 98.6 F 60 20 110/67 95 10/27/18 17:11 10/27/18 17:11 10/27/18 17:11 10/27/18 17:11 10/27/18 17:11 Intake and Output: 10/27/18 10/28/18 18:59 06:59 Intake Total 480 Balance 480 - Medications Medications: Current Medications Acetaminophen (Tylenol 325mg Tab) 650 mg PO ONCE PRN PRN Reason: Fever >100.4 F Last Admin: 10/26/18 01:10 Dose: 650 mg Famotidine (Pepcid) 20 mg PO BID [facility] Last Admin: 10/27/18 17:08 Dose: 20 mg - Labs Labs: 10/27/18 07:12 10/27/18 07:12 PT 12.4 SECONDS (9.7-12.2) H 10/25/18 15:53 INR 1.1 10/25/18 15:53 APTT 29 SECONDS (21-34) 10/25/18 15:53
--- NOTE | 2018-10-28 01:58 | PN ---
DATE: 10/27/2018 SUBJECTIVE: Nino is for discharge. No fever. No chills. The patient's H and H have been stable. Hemoglobin is up to 10.1. No shortness of breath. PHYSICAL EXAMINATION: VITAL SIGNS: BP 110/67, pulse 60, respiratory rate 20, temperature 98.6. LUNGS: Clear. CARDIOVASCULAR SYSTEM: S1 and S2 are regular. ABDOMEN: Soft. ASSESSMENT: 1. Anemia due to blood disorders. 2. Multinodular goiter. PLAN: Continue current medications. Monitor the patient. Carlos Urena MD
--- NOTE | 2018-10-28 08:07 | CON ---
DATE: 10/26/2018 CONSULTATION LOCATION: 368, bed A. This is from Dr. Goodman to Dr. Carlos Urena. I was called for a GI consultation by the admitting MD. The patient is seen and fully examined on 10/26/2018 as requested by the admitting medical staff. The entire chart is reviewed including but not limited to most recent lab and radiology study results, current and the previous medication lists, current and the previous medical events, allergy to medication list as well as all the available current and the previous medical records. Case discussed with the staff at length and the patient was seen in the presence of a [place] spoken staff in the floor. HISTORY OF PRESENT ILLNESS: This 73-year-old female was admitted to the hospital with a reported outpatient blood counts of low hemoglobin of 7.7, was complaining of slight abdominal discomfort and generalized mild weakness, but no chest pain or palpitation, or shortness of breath. No reported evidence of active GI bleeding recently as per the patient's statement. PAST MEDICAL HISTORY: Including osteoarthritis as well as anemia, had been on iron intake. Status post appendectomy. FAMILY HISTORY: Unknown. SOCIAL HISTORY: Denied any recent history of cigarette smoking or alcohol intake. CURRENT MEDICATION: Post admission medication lists were reviewed. ALLERGIES TO MEDICATION: UNCLEAR. LABORATORY DATA: Initial blood workup post admission showed hemoglobin of 7.6, hematocrit 22.3, white blood cells of 3.24. BUN 22, creatinine of 0.5. PHYSICAL EXAMINATION: GENERAL: A 73-year-old female appears to be awake, alert, oriented, afebrile with pulse of 82, respiratory rate 18-20, blood pressure of 124/70. HEENT: Showed pale, dry oral mucoid membrane. Nonicteric sclerae. LUNGS: Scattered crepitation. Decreased air entry at bases. HEART: Positive S1 and S2. ABDOMEN: Soft with slight generalized tenderness. No mass or organomegaly. No rebound tenderness or guarding. RECTAL: Patient refused. EXTREMITIES: Without significant clubbing, cyanosis or edema. NEUROLOGIC: No reported new neurological deficits, sensory or motor. No reported focal deficits. IMPRESSION: 1. Anemia, to rule out upper versus lower gastrointestinal blood loss. 2. To rule out occult gastrointestinal malignancy. 3. Past medical history as mentioned above. The patient had been taking anti-inflammatory agents on and off before. SUGGESTIONS: 1. Agree with your plan. 2. Cancer markers. 3. Sectional abdominal and pelvic CT scan. 4. Proton pump inhibitors IV. 5. Endoscopic evaluation of the GI tract after adequate preparation. 6. Hematology/Oncology reevaluation. 7. We will follow up closely with you. Thank you for letting me participate in your patient's case management. Dusty Goodman MD
[2018-10-28] MEDS ORDERED: Lactated Ringer's 500 ML IV ONE ×2 (09:53)
[2018-10-28] MEDS ORDERED: Propofol 10 mg/ml Inj (20 ML) ONE (09:56)
[2018-10-28] MEDS ORDERED: Peg-Electrolyte Oral Soln 4L (Golytely) PO ONE (11:00)
[2018-10-28] MEDS ORDERED: Bisacodyl 5mg EC Tab PO ONE (17:00)
--- NOTE | 2018-10-28 21:57 | CP.PCM.PN ---
Subjective - Subjective Subjective: dictated Objective - Vital Signs/Intake and Output Vital Signs (last 24 hours): Temp Pulse Resp BP Pulse Ox 97.7 F 73 20 133/75 93 L 10/28/18 16:14 10/28/18 16:14 10/28/18 16:14 10/28/18 16:14 10/28/18 16:14 Intake and Output: 10/28/18 10/29/18 18:59 06:59 Intake Total 1999 Balance 1999 - Medications Medications: Current Medications Acetaminophen (Tylenol 325mg Tab) 650 mg PO ONCE PRN PRN Reason: Fever >100.4 F Last Admin: 10/26/18 01:10 Dose: 650 mg Famotidine (Pepcid) 20 mg PO BID [facility] Last Admin: 10/28/18 18:05 Dose: 20 mg Metoclopramide HCl (Reglan) 5 mg IVP Q6H [facility] Last Admin: 10/28/18 21:25 Dose: 5 mg - Labs Labs: 10/27/18 07:12 10/27/18 07:12 PT 12.4 SECONDS (9.7-12.2) H 10/25/18 15:53 INR 1.1 10/25/18 15:53 APTT 29 SECONDS (21-34) 10/25/18 15:53
--- NOTE | 2018-10-28 22:57 | CP.PCM.PN ---
Subjective - Date & Time of Evaluation Date of Evaluation: 10/28/18 Time of Evaluation: 18:00 - Subjective Subjective: No complaints. Objective - Vital Signs/Intake and Output Vital Signs (last 24 hours): Temp Pulse Resp BP Pulse Ox 97.7 F 73 20 133/75 93 L 10/28/18 16:14 10/28/18 16:14 10/28/18 16:14 10/28/18 16:14 10/28/18 16:14 Intake and Output: 10/28/18 10/29/18 18:59 06:59 Intake Total 1999 Balance 1999 - Medications Medications: Current Medications Acetaminophen (Tylenol 325mg Tab) 650 mg PO ONCE PRN PRN Reason: Fever >100.4 F Last Admin: 10/26/18 01:10 Dose: 650 mg Famotidine (Pepcid) 20 mg PO BID [facility] Last Admin: 10/28/18 18:05 Dose: 20 mg Metoclopramide HCl (Reglan) 5 mg IVP Q6H [facility] Last Admin: 10/28/18 21:25 Dose: 5 mg - Labs Labs: 10/27/18 07:12 10/27/18 07:12 PT 12.4 SECONDS (9.7-12.2) H 10/25/18 15:53 INR 1.1 10/25/18 15:53 APTT 29 SECONDS (21-34) 10/25/18 15:53 - Head Exam Head Exam: ATRAUMATIC - Eye Exam Eye Exam: Normal appearance - ENT Exam ENT Exam: Mucous Membranes Dry - Respiratory Exam Respiratory Exam: NORMAL BREATHING PATTERN - Cardiovascular Exam Cardiovascular Exam: +S1, +S2 - GI/Abdominal Exam GI & Abdominal Exam: Normal Bowel Sounds Assessment and Plan (1) Anemia Assessment & Plan: 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
--- NOTE | 2018-10-29 02:57 | PN ---
DATE: 10/28/2018 SUBJECTIVE: The patient, Nino, is afebrile. Her H and H are stable. Hemoglobin today is 10.1. She is for colonoscopy. No fever. No chills. No nausea or vomiting. PHYSICAL EXAMINATION: VITAL SIGNS: Blood pressure 133/75, pulse 73, respiratory rate 20, temperature 97.7. LUNGS: Clear. No rales. No rhonchi. CARDIOVASCULAR SYSTEM: S1 and S2 are regular. ABDOMEN: Soft. ASSESSMENT: 1. Anemia, unclear. Rule out gastrointestinal bleed, rule out myeloproliferative disorder, rule out bone marrow disorder. 2. Dehydration. 3. Anemia. 4. Multinodular goiter. PLAN: Colonoscopy in the a.m. Monitor H and H. Carlos Urena MD
[2018-10-29 07:17] LABS: BASO % 1.1 % (0.0-2.0); EOS % 1.8 % (0.0-4.0); HEMOGLOBIN 9.6 g/dL (11.0-16.0); LYMPH # 1.2 K/uL (1.0-4.3); LYMPH % 47.6 % (20.0-40.0); MEAN CELL VOLUME 101.5 fL (81.0-99.0); MEAN CORPUSCULAR HEMOGLOBIN 35.4 pg (27.0-31.0); MEAN CORPUSCULAR HGB CONC 34.8 g/dL (33.0-37.0); MEAN PLATELET VOLUME 10.2 fL (7.2-11.7); MONO # 0.2 K/uL (0.0-0.8); MONO % 8.1 % (0.0-10.0); NEUT # 1.1 K/uL (1.8-7.0); NEUT % 41.4 % (50.0-75.0); NRBC % 0.3 % (0.0-2.0); RBC 2.7 Mil/uL (3.80-5.20); RED CELL DISTRIBUTION WIDTH 24.1 % (11.5-14.5); WHITE BLOOD COUNT 2.6 K/uL (4.8-10.8)
[2018-10-29 07:37] LABS: BLOOD UREA NITROGEN 14 mg/dL (7-17); CALCIUM 7.9 mg/dl (8.6-10.4); GFR NON-AFRICAN AMERICAN > 60
[2018-10-29 09:23] LABS: ALBUMIN (PEP) 3.8 g/dL (3.8-4.8); ALPHA-1-GLOBULIN (PEP) 0.3 g/dL (0.2-0.3)
[2018-10-29] MEDS ORDERED: Lactated Ringer's 1,000 ML IV ONE (10:55)
[2018-10-29] MEDS ORDERED: Lidocaine Hydrochloride 5 ML INJ ONE (11:02)
[2018-10-29] MEDS ORDERED: Propofol 10 mg/ml Inj (20 ML) ONE ×2 (11:02→11:13)
[2018-10-29 16:01] VITALS: BP 114/69; PULSE 66; RESP 20; TEMP 98; O2SAT 93
--- NOTE | 2018-10-29 17:43 | CP.PCM.PN ---
Subjective - Date & Time of Evaluation Date of Evaluation: 10/29/18 Time of Evaluation: 17:43 - Subjective Subjective: alert, awake, no abdominal pain or active bleeding. Objective - Vital Signs/Intake and Output Vital Signs (last 24 hours): Temp Pulse Resp BP Pulse Ox 98.0 F 66 20 114/69 93 L 10/29/18 16:00 10/29/18 16:00 10/29/18 16:00 10/29/18 16:00 10/29/18 16:00 Intake and Output: 10/29/18 10/29/18 06:59 18:59 Intake Total 1500 300 Balance 1500 300 - Labs Labs: 10/29/18 06:59 10/29/18 06:59 PT 12.4 SECONDS (9.7-12.2) H 10/25/18 15:53 INR 1.1 10/25/18 15:53 APTT 29 SECONDS (21-34) 10/25/18 15:53 Assessment and Plan - Assessment and Plan (Free Text) Assessment: 73 year old female admitted with anemia, seen and examined. Alert and orientedx3, denies any pain or distress. Had colonoscopy done today, resulted negative for any active bleeding. Discussed with DR Urena, plan to discharge home today with family. Advised to follow up with PMD in 1 week.
--- NOTE | 2018-10-29 20:49 | CP.PCM.PN ---
Subjective - Date & Time of Evaluation Date of Evaluation: 10/29/18 Time of Evaluation: 12:00 - Subjective Subjective: No complaints s/p colonoscopy Objective - Vital Signs/Intake and Output Vital Signs (last 24 hours): Temp Pulse Resp BP Pulse Ox 98.0 F 66 20 114/69 93 L 10/29/18 16:00 10/29/18 16:00 10/29/18 16:00 10/29/18 16:00 10/29/18 16:00 Intake and Output: 10/29/18 10/30/18 18:59 06:59 Intake Total 300 Balance 300 - Labs Labs: 10/29/18 06:59 10/29/18 06:59 PT 12.4 SECONDS (9.7-12.2) H 10/25/18 15:53 INR 1.1 10/25/18 15:53 APTT 29 SECONDS (21-34) 10/25/18 15:53 - Head Exam Head Exam: ATRAUMATIC - Eye Exam Eye Exam: Normal appearance - ENT Exam ENT Exam: Mucous Membranes Dry - Respiratory Exam Respiratory Exam: NORMAL BREATHING PATTERN - Cardiovascular Exam Cardiovascular Exam: +S1, +S2 - GI/Abdominal Exam GI & Abdominal Exam: Normal Bowel Sounds Assessment and Plan (1) Anemia Assessment & Plan: 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
--- NOTE | 2018-10-30 00:24 | CP.PCM.DIS ---
Provider - Provider Date of Admission: 10/28/18 13:14 Attending physician: Carlos Urena MD Consults: 10/25/18 18:17 Physician Consult Routine Comment: anemia Consulting Provider: Lamont Ford Consulting Physician: Lamont Ford Reason for Consult: hem/onc 10/25/18 18:38 Hematology Oncology Consult Routine Comment: Consulting Provider: Lamont Ford Consulting Physician: Lamont Ford Reason for Consult: anmeia 10/25/18 23:59 Gastroenterology Consult Routine Comment: Consulting Provider: Dusty Del Cid Consulting Physician: Dusty Del Cid Reason for Consult: anemia Hospital Course - Lab Results Lab Results: Most Recent Lab Values WBC 2.6 K/uL (4.8-10.8) L 10/29/18 06:59 RBC 2.70 Mil/uL (3.80-5.20) L 10/29/18 06:59 Hgb 9.6 g/dL (11.0-16.0) L 10/29/18 06:59 Hct 27.4 % (34.0-47.0) L 10/29/18 06:59 MCV 101.5 fL (81.0-99.0) H 10/29/18 06:59 MCH 35.4 pg (27.0-31.0) H 10/29/18 06:59 MCHC 34.8 g/dL (33.0-37.0) 10/29/18 06:59 RDW 24.1 % (11.5-14.5) H 10/29/18 06:59 Plt Count 191 K/uL (130-400) 10/29/18 06:59 MPV 10.2 fL (7.2-11.7) 10/29/18 06:59 Neut % (Auto) 41.4 % (50.0-75.0) L 10/29/18 06:59 Lymph % (Auto) 47.6 % (20.0-40.0) H 10/29/18 06:59 [place] % (Auto) 8.1 % (0.0-10.0) 10/29/18 06:59 Eos % (Auto) 1.8 % (0.0-4.0) 10/29/18 06:59 Baso % (Auto) 1.1 % (0.0-2.0) 10/29/18 06:59 Neut # (Auto) 1.1 K/uL (1.8-7.0) L 10/29/18 06:59 Lymph # (Auto) 1.2 K/uL (1.0-4.3) 10/29/18 06:59 [place] # (Auto) 0.2 K/uL (0.0-0.8) 10/29/18 06:59 Eos # (Auto) 0.0 K/uL (0.0-0.7) 10/29/18 06:59 Baso # (Auto) 0.0 K/uL (0.0-0.2) 10/29/18 06:59 Retic Count 1.6 % (0.5-1.5) H 10/26/18 11:02 Hemoglobinopathy Red Blood Count 1.99 Mill/mcL (3.80-5.10) L 10/26/18 08:07 Hemoglobinopathy Hct 23.1 % (35.0-45.0) L 10/26/18 08:07 Hemoglobinopathy Hgb 7.2 g/dL (11.7-15.5) L 10/26/18 08:07 Hemoglobinopathy MCV 116.4 fL (80.0-100.0) H 10/26/18 08:07 Hemoglobinopathy MCH 36.1 pg (27.0-33.0) H 10/26/18 08:07 Hemoglobinopathy RDW 30.4 % (11.0-15.0) H 10/26/18 08:07 PT 12.4 SECONDS (9.7-12.2) H 10/25/18 15:53 INR 1.1 10/25/18 15:53 APTT 29 SECONDS (21-34) 10/25/18 15:53 Sodium 139 mmol/L (132-148) 10/29/18 06:59 Potassium 4.0 mmol/L (3.6-5.2) 10/29/18 06:59 Chloride 103 mmol/L (98-107) 10/29/18 06:59 Carbon Dioxide 27 mmol/L (22-30) 10/29/18 06:59 Anion Gap 13 (10-20) 10/29/18 06:59 BUN 14 mg/dL (7-17) 10/29/18 06:59 Creatinine 0.5 mg/dL (0.7-1.2) L 10/29/18 06:59 Est GFR ( Amer) > 60 10/29/18 06:59 Est GFR (Non-Af Amer) > 60 10/29/18 06:59 POC Glucose (mg/dL) 327 mg/dL (65-110) H 10/28/18 11:07 Random Glucose 92 mg/dL (65-105) 10/29/18 06:59 Calcium 7.9 mg/dl (8.6-10.4) L 10/29/18 06:59 Ferritin 666.0 ng/mL 10/26/18 11:02 Total Bilirubin 0.9 mg/dL (0.2-1.3) 10/25/18 15:53 AST 33 U/L (14-36) 10/25/18 15:53 ALT 27 U/L (9-52) 10/25/18 15:53 Alkaline Phosphatase 78 U/L (38-126) 10/25/18 15:53 Total Protein 7.5 g/dL (6.3-8.3) 10/25/18 15:53 Total Protein (PEP) 7.0 g/dL (6.1-8.1) 10/27/18 07:12 Albumin 4.0 g/dL (3.5-5.0) 10/25/18 15:53 Albumin (PEP) 3.8 g/dL (3.8-4.8) 10/27/18 07:12 Globulin 3.5 gm/dL (2.2-3.9) 10/25/18 15:53 Albumin/Globulin Ratio 1.1 (1.0-2.1) 10/25/18 15:53 Qtblh-1-Amitmsven 0.3 g/dL (0.2-0.3) 10/27/18 07:12 Zqzkv-9-Kpdmkijly 0.5 g/dL (0.5-0.9) 10/27/18 07:12 Tufi-4-Qqajvtzp 0.4 g/dL (0.4-0.6) 10/27/18 07:12 Dxkr-0-Fkxocnel 0.3 g/dL (0.2-0.5) 10/27/18 07:12 Gamma Globulins 1.7 g/dL (0.8-1.7) 10/27/18 07:12 Abnorm Protein Band 1 TEST NOT PERFORMED 10/27/18 07:12 Abnorm Protein Band 2 TEST NOT PERFORMED 10/27/18 07:12 Abnorm Protein Band 3 TEST NOT PERFORMED 10/27/18 07:12 Carcinoembryonic Ag 0.5 ng/mL (0-3.0) 10/27/18 09:54 CA 19-9 Antigen 3.7 U/mL (0-37) 10/27/18 09:54 CA 125 Antigen 7.8 U/mL (0-35) 10/27/18 09:54 Vitamin B12 349 pg/mL (239-931) 10/26/18 11:02 Folate > 20.0 ng/mL 10/26/18 11:02 Free T4 0.96 ng/dL (0.78-2.19) 10/26/18 11:02 TSH 3rd Generation 1.25 mIU/L (0.46-4.68) 10/26/18 11:02 Urine Color Yellow (YELLOW) 10/25/18 22:36 Urine Clarity Clear (Clear) 10/25/18 22:36 Urine pH 6.0 (5.0-8.0) 10/25/18 22:36 Ur Specific [place] 1.013 (1.003-1.030) 10/25/18 22:36 Urine Protein Negative mg/dL (NEGATIVE) 10/25/18 22:36 Urine Glucose (UA) Normal mg/dL (Normal) 10/25/18 22:36 Urine Ketones Negative mg/dL (NEGATIVE) 10/25/18 22:36 Urine Blood Negative (NEGATIVE) 10/25/18 22:36 Urine Nitrate Negative (NEGATIVE) 10/25/18 22:36 Urine Bilirubin Negative (NEGATIVE) 10/25/18 22:36 Urine Urobilinogen Normal mg/dL (0.2-1.0) 10/25/18 22:36 Ur Leukocyte Esterase Neg Carlos Eduardo/uL (Negative) 10/25/18 22:36 Urine WBC (Auto) 1 /hpf (0-5) 10/25/18 22:36 Urine RBC (Auto) < 1 /hpf (0-3) 10/25/18 22:36 Ur Squamous Epith Cells 3 /hpf (0-5) 10/25/18 22:36 Urine Bacteria Occ (<OCC) H 10/25/18 22:36 Stool Occult Blood Negative (NEGATIVE) 10/25/18 22:36 JOHN & SPEP Interp See note 10/27/18 07:12 Serum Immunofixation Not detected (Not Detected) 10/27/18 07:12 Thyroperoxidase Ab <1 IU/mL (<9) 10/26/18 08:40 Thyroglobulin Antibody 7 IU/mL (< OR = 1) H 10/26/18 08:40 Free Calhoun Light Chains 26.5 mg/L (3.3-19.4) H 10/27/18 07:12 Free Lambda Light Chain 15.2 mg/L (5.7-26.3) 10/27/18 07:12 Free Calhoun/Lambda Ratio 1.74 (0.26-1.65) H 10/27/18 07:12 Blood Type O POSITIVE 10/25/18 17:12 Antibody Screen Positive 10/25/18 17:12 Antibody Identification Anti Fyb Anti K 10/25/18 17:12 Antibody Identification Anti Fyb Anti K 10/25/18 17:12 Discharge Exam - Head Exam Head Exam: ATRAUMATIC Discharge Plan - Discharge Medications Prescriptions: Famotidine [Pepcid] 20 mg PO BID #60 tab - Follow Up Plan Condition: GOOD Disposition: HOME/ ROUTINE Instructions: Urinary Incontinence (GEN), Kegel Exercises for Women (DC), Kegel Exercises for Women (GEN), Bedwetting (DC), Bedwetting (GEN)
[2018-10-30 12:41] LABS: HEMOGLOBIN A 96.8 Percent (>96.0); HEMOGLOBIN A2 2.2 Percent (1.8-3.5)
--- NOTE | 2018-10-30 20:50 | DS ---
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 HISTORY OF PRESENT ILLNESS: This is a 73-year-old female with history of chronic anemia. She was referred for blood transfusion. She underwent blood transfusion and there was questionable GI bleed and the patient underwent EGD and colonoscopy. No active lesion has been found. The patient is feeling better. Her H and H is stable after transfusion. She is being discharged with outpatient followup. LABORATORY DATA: WBC 2.6, hemoglobin 9.6, hematocrit 27.4, and platelets 191. Sodium 139, potassium 4, chloride 103, bicarb 27, BUN 14, creatinine 1.5. PHYSICAL EXAMINATION: VITAL SIGNS: Blood pressure 114/69, pulse 66, respiratory rate 20, temperature 98. CONDITION UPON DISCHARGE: Stable. Carlos Urena MD
== END 2018-10-29 17:15 | disposition home or self-care (01) | DRG 810 ==
LOC: C.ER 14:52 → C.3T 18:17 → OBSVTOIN 10-28 13:14
PROVIDERS: ADMIT Internal Medicine; ATTEND Internal Medicine
PROC: 30233N1 Transfusion of Nonautologous Red Blood Cells into Peripheral Vein, Percutaneous Approach (ICD-10-PCS; 2018-10-26)
PROC: 0DB68ZX Excision of Stomach, Via Natural or Artificial Opening Endoscopic, Diagnostic (ICD-10-PCS; 2018-10-28)
PROC: 0DB98ZX Excision of Duodenum, Via Natural or Artificial Opening Endoscopic, Diagnostic (ICD-10-PCS; principal; 2018-10-28 09:56)
PROC: 0DBM8ZX Excision of Descending Colon, Via Natural or Artificial Opening Endoscopic, Diagnostic (ICD-10-PCS; 2018-10-29)
PROC: 0DBE8ZX Excision of Large Intestine, Via Natural or Artificial Opening Endoscopic, Diagnostic (ICD-10-PCS; 2018-10-29)
DX: D61.89 Other specified aplastic anemias and other bone marrow failure syndromes (principal); K29.00 Acute gastritis without bleeding; B96.81 Helicobacter pylori [H. pylori] as the cause of diseases classified elsewhere; K57.30 Diverticulosis of large intestine without perforation or abscess without bleeding; D12.6 Benign neoplasm of colon, unspecified; E86.0 Dehydration; D72.819 Decreased white blood cell count, unspecified; E04.2 Nontoxic multinodular goiter; I10 Essential (primary) hypertension; K29.50 Unspecified chronic gastritis without bleeding; K44.9 Diaphragmatic hernia without obstruction or gangrene; K64.0 First degree hemorrhoids; K21.9 Gastro-esophageal reflux disease without esophagitis; Z90.49 Acquired absence of other specified parts of digestive tract

== ENCOUNTER 2019-01-01 08:33 | Outpatient (CLI) | payer MEDICARE | END 2019-01-01 08:34 | disposition home or self-care (01) | LOC: C.USIC 08:34 | DX: E04.1 Nontoxic single thyroid nodule (principal) ==

== ENCOUNTER 2019-04-03 04:40 | Observation (INO) | payer MEDICARE, MEDICAID ==
[2019-04-03 04:41] VITALS: BMI 35.1
[2019-04-03] MEDS ORDERED: Acetaminophen 650mg/20.3ml solution UD PO STA (05:10)
[2019-04-03] MEDS ORDERED: Sodium Chloride 0.9% 1,000 ML IV ONE ×2 (05:13→05:49)
[2019-04-03 05:38] LABS: BASO % 1.2 % (0.0-2.0); EOS % 0.2 % (0.0-4.0); HEMOGLOBIN 8.6 g/dL (11.0-16.0); LYMPH # 0.7 K/uL (1.0-4.3); LYMPH % 23.4 % (20.0-40.0); MEAN CELL VOLUME 122.2 fL (81.0-99.0); MEAN CORPUSCULAR HEMOGLOBIN 41.7 pg (27.0-31.0); MEAN CORPUSCULAR HGB CONC 34.1 g/dL (33.0-37.0); MEAN PLATELET VOLUME 10.2 fL (7.2-11.7); MONO # 0.1 K/uL (0.0-0.8); MONO % 4.1 % (0.0-10.0); NEUT # 2.2 K/uL (1.8-7.0); NEUT % 71.1 % (50.0-75.0); NRBC % 0.2 % (0.0-2.0); RBC 2.06 Mil/uL (3.80-5.20); RED CELL DISTRIBUTION WIDTH 16.3 % (11.5-14.5)
[2019-04-03] MEDS ORDERED: Sodium Chloride 0.9% 1,000 ML ONE (05:45)
[2019-04-03 05:47] LABS: VENOUS BLOOD GAS BASE EXCESS -3.2 mmol/L (0.0-2.0); VENOUS BLOOD GAS PCO2 43 mmHg (40-60); VENOUS BLOOD GAS PO2 32 mm/Hg (30-55); VENOUS BLOOD PH 7.33 (7.32-7.43)
[2019-04-03] MEDS ORDERED: Sodium Chloride 0.9% 500 ML IV STA (05:50)
--- NOTE | 2019-04-03 06:16 | C.PDOC ---
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 Tonight she was laying down when she had sudden onset of dizziness described as room spinning, nausea, and multiple episodes of vomiting. Patient reports that after vomiting multiple times she began having a mild headache. She notes she has gotten dizzy spells before in the past but is unsure if she was ever given anything for them. Patient's sons at bedside reported she had abdominal pain but when questioned patient denies abdominal pain as well and chest pain or SOB. Time Seen by Provider: 04/03/19 04:53 Chief Complaint (Nursing): Dizziness/Lightheaded History Per: Patient History/Exam Limitations: no limitations Onset/Duration Of Symptoms: Hrs, Sudden Onset Current Symptoms Are (Timing): Still Present Activity At Onset Of Symptoms: Lying Seizure Or Post-ictal Symptoms: None Possible Causative Factor(s): Vertigo Fall Associated With With Symptoms: No Recent travel outside of the [place]: No Past Medical History Reviewed: Historical Data, Nursing Documentation, Vital Signs Vital Signs: Last Vital Signs Temp 98.0 F 04/03/19 04:54 Pulse 79 04/03/19 04:54 Resp 20 04/03/19 04:54 BP 151/71 H 04/03/19 04:54 Pulse Ox 99 04/03/19 04:54 Primary Care Provider: Sendy Rosario - Medical History PMH: Anemia, Arthritis Denies: Chronic Kidney Disease Surgical History: Appendectomy - [facility] Procedures EXCISION OF DESCENDING COLON, ENDO, DIAGN (10/28/18) EXCISION OF DUODENUM, ENDO, DIAGN (10/28/18) EXCISION OF LARGE INTESTINE, ENDO, DIAGN (10/28/18) EXCISION OF STOMACH, ENDO, DIAGN (10/28/18) TRANSFUSE NONAUT RED BLOOD CELLS IN PERIPH VEIN, PERC (10/28/18) Family History: States: Unknown Family Hx - Social History Hx Tobacco Use: No Hx Alcohol Use: No Hx Substance Use: No - Immunization History Hx Tetanus Toxoid Vaccination: No Hx Influenza Vaccination: No Hx Pneumococcal Vaccination: No Review Of Systems Constitutional: Negative for: Fever, Chills Eyes: Negative for: Pain, Redness ENT: Negative for: Mouth Swelling Cardiovascular: Negative for: Chest Pain, Palpitations Respiratory: Negative for: Cough, Shortness of Breath Gastrointestinal: Positive for: Nausea, Vomiting. Negative for: Abdominal Pain Genitourinary: Negative for: Dysuria, Hematuria Musculoskeletal: Negative for: Back Pain Skin: Negative for: Rash Neurological: Positive for: Headache, Dizziness. Negative for: Weakness, Numbness Physical Exam - Physical Exam Appears: Non-toxic, Other (Eye are closed, opening eyes worsens dizziness.) Skin: Warm, Pale (Slightly) Head: Atraumatic, Normacephalic Eye(s): bilateral: Normal Inspection, PERRL, EOMI Ear(s): Bilateral: Normal Nose: Normal Oral Mucosa: Dry Throat: Normal (No swelling or injection), No Exudate Neck: Normal ROM, Supple Chest: Symmetrical Cardiovascular: Rhythm Regular Respiratory: Normal Breath Sounds, No Accessory Muscle Use, Other (Normal inspiratory effort) Gastrointestinal/Abdominal: Soft, No Tenderness, No Distention Extremity: Normal ROM (x4) Pulses: Left Radial: Normal, Right Radial: Normal, Left Dorsalis Pedis: Normal, Right Dorsalis Pedis: Normal Neurological/Psych: Oriented x3, Normal Speech, Normal Cranial Nerves, Normal Motor, Normal Sensation, Other (Answering all questions appropriately. No obvious neuro deficit.) ED Course And Treatment - Laboratory Results Result Diagrams: 04/03/19 05:35 04/03/19 05:35 Lab Results: pO2 32 mm/Hg (30-55) 04/03/19 05:40 VBG pH 7.33 (7.32-7.43) 04/03/19 05:40 VBG pCO2 43 mmHg (40-60) 04/03/19 05:40 VBG HCO3 21.3 mmol/L 04/03/19 05:40 VBG Total CO2 24.0 mmol/L (22-28) 04/03/19 05:40 VBG O2 Sat (Calc) 61.9 % (40-65) 04/03/19 05:40 VBG Base Excess -3.2 mmol/L (0.0-2.0) L 04/03/19 05:40 VBG Potassium 3.7 mmol/L (3.6-5.2) 04/03/19 05:40 Sodium 139.0 mmol/l (132-148) 04/03/19 05:40 Chloride 106.0 mmol/L (98-107) 04/03/19 05:40 Glucose 132 mg/dl (65-105) H 04/03/19 05:40 Lactate 2.7 mmol/L (0.7-2.1) H 04/03/19 05:40 O2 Sat by Pulse Oximetry: 99 (Room air) Pulse Ox Interpretation: Normal Medical Decision Making Medical Decision Making: Patient reports dizziness resolved after receiving meds, pending CT and reassessment. Disposition - Disposition Disposition Time: 07:01 Condition: IMPROVED Forms: [facility] [facility] ([place]) - Clinical Impression Clinical Impression: Dizziness - PA / SENIOR SUPPLIER QUALITY ENGINEER / Resident Statement MD/DO has reviewed & agrees with the documentation as recorded. - Scribe Statement The provider has reviewed the documentation as recorded by the Scribpinky Cuenca All medical record entries made by the Scribe were at my direction and personally dictated by me. I have reviewed the chart and agree that the record accurately reflects my personal performance of the history, physical exam, medical decision making, and the department course for this patient. I have also personally directed, reviewed, and agree with the discharge instructions and disposition. Physician Patient Turnover Patient Signed Over To: Lawanda Cleveland (dizziness, pending ct)
[2019-04-03 06:43] LABS: BLOOD UREA NITROGEN 12 mg/dL (7-17); CALCIUM 8.6 mg/dl (8.6-10.4); GFR NON-AFRICAN AMERICAN > 60
[2019-04-03 06:44] LABS: ALBUMIN 4.2 g/dL (3.5-5.0); ALT/SGPT 21 U/L (9-52); AST/SGOT 55 U/L (14-36)
--- NOTE | 2019-04-03 08:15 | CT ---
Date of service: 04/03/2019 PROCEDURE: CT HEAD WITHOUT CONTRAST. HISTORY: headache COMPARISON: 12/30/2013 TECHNIQUE: Axial computed tomography images were obtained through the head/brain without intravenous contrast. Radiation dose: Total exam DLP = 984.32 mGy-cm. This CT exam was performed using one or more of the following dose reduction techniques: Automated exposure control, adjustment of the mA and/or kV according to patient size, and/or use of iterative reconstruction technique. FINDINGS: HEMORRHAGE: No intracranial hemorrhage. BRAIN: No mass effect or edema. Scattered focal lucencies in the subcortical and periventricular white matter suggestive for chronic microvascular ischemic change. Diffuse generalized parenchymal atrophy. Punctate bilateral basal ganglia lacunar infarcts. VENTRICLES: Unremarkable. No hydrocephalus. CALVARIUM: Unremarkable. PARANASAL SINUSES: Mild mucosal thickening of the sphenoid sinus and ethmoid air cells. 7 millimeter mucosal retention cyst and or polyp in the anterior left sphenoid sinus. MASTOID AIR CELLS: Unremarkable as visualized. No inflammatory changes. OTHER FINDINGS: Intracranial arterial calcifications. IMPRESSION: No acute intracranial abnormality. Chronic microvascular ischemic change. Diffuse generalized parenchymal atrophy. Punctate bilateral basal ganglia lacunar infarcts. Mild sinus mucosal disease. If symptoms persists, consider correlation with MRI. A preliminary report was generated at 7:23 a.m. on 04/03/[address] Ilan Carty from [facility].
[2019-04-03 09:07] LABS: VENOUS BLOOD GAS BASE EXCESS -1.3 mmol/L (0.0-2.0); VENOUS BLOOD GAS PCO2 46 mmHg (40-60); VENOUS BLOOD GAS PO2 31 mm/Hg (30-55); VENOUS BLOOD PH 7.34 (7.32-7.43)
--- NOTE | 2019-04-03 18:59 | CP.PCM.HP ---
History of Present Illness - History of Present Illness History of Present Illness: 73-year-old female mainly speaks Turkish with history of leukemia history of anemia history of hypertension came in because of suddenly became dizzy with the room spinning with the nausea and started vomiting a few episodes of vomiting eventually patient came to the emergency room for further work-up patient claims she takes iron tablet which he stopped because of the heavy iron patient has some doctors name in [place] for which she is getting a treatment for the leukemia patient also has abdominal pain upper abdominal pain PMH: Anemia, Arthritis Denies: Chronic Kidney Disease Surgical History: Appendectomy - [facility] Procedures EXCISION OF DESCENDING COLON, ENDO, DIAGN (10/28/18) EXCISION OF DUODENUM, ENDO, DIAGN (10/28/18) EXCISION OF LARGE INTESTINE, ENDO, DIAGN (10/28/18) EXCISION OF STOMACH, ENDO, DIAGN (10/28/18) TRANSFUSE NONAUT RED BLOOD CELLS IN PERIPH VEIN, PERC (10/28/18) Family History: States: Unknown Family Hx - Social History Hx Tobacco Use: No Hx Alcohol Use: No Hx Substance Use: No - Immunization History Hx Tetanus Toxoid Vaccination: No Hx Influenza Vaccination: No Hx Pneumococcal Vaccination: No Review Of Systems Constitutional: Negative for: Fever, Chills Eyes: Negative for: Pain, Redness ENT: Negative for: Mouth Swelling Cardiovascular: Negative for: Chest Pain, Palpitations Respiratory: Negative for: Cough, Shortness of Breath Gastrointestinal: Positive for: Nausea, Vomiting. Negative for: Abdominal Pain Genitourinary: Negative for: Dysuria, Hematuria Musculoskeletal: Negative for: Back Pain Skin: Negative for: Rash Neurological: Positive for: Headache, Dizziness. Negative for: Weakness, Numbness Present on Admission - Present on Admission Any Indicators Present on Admission: No Past Patient History - Past Medical History & Family History Past Medical History?: Yes - Past Social History Smoking Status: Never Smoked - CARDIAC Hx Cardiac Disorders: No - PULMONARY Hx Respiratory Disorders: No - NEUROLOGICAL Hx Neurological Disorder: No - HEENT Hx HEENT Problems: No - RENAL Hx Chronic Kidney Disease: No - ENDOCRINE/METABOLIC Hx Endocrine Disorders: Yes Other/Comment: "Thyroid surgery'' - HEMATOLOGICAL/ONCOLOGICAL Hx Anemia: Yes - INTEGUMENTARY Hx Dermatological Problems: No - MUSCULOSKELETAL/RHEUMATOLOGICAL Hx Arthritis: Yes - GASTROINTESTINAL Hx Gastrointestinal Disorders: No - GENITOURINARY/GYNECOLOGICAL Hx Genitourinary Disorders: No - PSYCHIATRIC Hx Substance Use: No - SURGICAL HISTORY Hx Appendectomy: Yes - ANESTHESIA Hx Anesthesia: Yes Hx Anesthesia Reactions: No Meds Allergies/Adverse Reactions: Allergies Allergy/AdvReac Type Severity Reaction Status Date / Time No Known Allergies Allergy Verified 04/03/19 04:57 Physical Exam - Constitutional Appears: Well - Head Exam Head Exam: ATRAUMATIC, NORMAL INSPECTION, NORMOCEPHALIC - Eye Exam Eye Exam: EOMI, Normal appearance, PERRL Pupil Exam: NORMAL ACCOMODATION, PERRL - ENT Exam ENT Exam: Mucous Membranes Moist, Normal Exam - Neck Exam Neck exam: Positive for: Normal Inspection - Respiratory Exam Respiratory Exam: Decreased Breath Sounds - Cardiovascular Exam Cardiovascular Exam: REGULAR RHYTHM, +S1, +S2 - GI/Abdominal Exam GI & Abdominal Exam: Diminished Bowel Sounds, Soft - Rectal Exam Rectal Exam: Deferred - Neurological Exam Neurological exam: Oriented x3 Results - Vital Signs Recent Vital Signs: Last Vital Signs Temp 98.2 F 04/03/19 15:39 Pulse 72 04/03/19 16:00 Resp 18 04/03/19 15:39 BP 103/57 L 04/03/19 15:39 Pulse Ox 94 L 04/03/19 15:39 - Labs Result Diagrams: 04/03/19 05:35 04/03/19 05:35 Labs: Laboratory Results - last 24 hr 04/03/19 04/03/19 04/03/19 05:35 05:35 05:40 WBC 3.0 L RBC 2.06 L Hgb 8.6 L Hct 25.1 L MCV 122.2 H D MCH 41.7 H MCHC 34.1 RDW 16.3 H Plt Count 197 MPV 10.2 Neut % (Auto) 71.1 Lymph % (Auto) 23.4 [place] % (Auto) 4.1 Eos % (Auto) 0.2 Baso % (Auto) 1.2 Neut # (Auto) 2.2 Lymph # (Auto) 0.7 L [place] # (Auto) 0.1 Eos # (Auto) 0.0 Baso # (Auto) 0.0 Differential Comment pO2 32 VBG pH 7.33 VBG pCO2 43 VBG HCO3 21.3 VBG Total CO2 24.0 VBG O2 Sat (Calc) 61.9 VBG Base Excess -3.2 L VBG Potassium 3.7 Glucose 132 H Lactate 2.7 H Sodium 141 139.0 Potassium 4.5 Chloride 108 H 106.0 Carbon Dioxide 22 Anion Gap 15 BUN 12 Creatinine 0.4 L Est GFR ( Amer) > 60 Est GFR (Non-Af Amer) > 60 Random Glucose 134 H D Calcium 8.6 Total Bilirubin 1.0 AST 55 H D ALT 21 Alkaline Phosphatase 79 Troponin I 0.0120 Total Protein 8.6 H Albumin 4.2 Globulin 4.3 H Albumin/Globulin Ratio 1.0 Venous Blood Potassium 3.7 04/03/19 09:03 WBC RBC Hgb Hct MCV MCH MCHC RDW Plt Count MPV Neut % (Auto) Lymph % (Auto) [place] % (Auto) Eos % (Auto) Baso % (Auto) Neut # (Auto) Lymph # (Auto) [place] # (Auto) Eos # (Auto) Baso # (Auto) Differential Comment pO2 31 VBG pH 7.34 VBG pCO2 46 VBG HCO3 22.8 VBG Total CO2 26.2 VBG O2 Sat (Calc) 60.4 VBG Base Excess -1.3 L VBG Potassium 3.9 Glucose 109 H Lactate 1.8 Sodium 143.0 Potassium Chloride 115.0 H Carbon Dioxide Anion Gap BUN Creatinine Est GFR ( Amer) Est GFR (Non-Af Amer) Random Glucose Calcium Total Bilirubin AST ALT Alkaline Phosphatase Troponin I Total Protein Albumin Globulin Albumin/Globulin Ratio Venous Blood Potassium 3.9 Assessment & Plan - Assessment and Plan (Free Text) Plan: Consultation with Dr. Ford Continue meclizine Metoclopramide GI consult with Dr. marie CT head reveals no acute intracranial abnormality IV Protonix Metoclopramide IV fluid No need for antibiotic Lovenox CBC CMP frequently will order
[2019-04-04 00:58] VITALS: RESP 20
--- NOTE | 2019-04-04 08:59 | CP.PCM.CON ---
<Amber Hector - Last Filed: 04/04/19 08:54> History of Present Illness - History of Present Illness History of Present Illness: GI Fellow PGY5 Consult Note This is a 73 year old female with a history of Chronic Leukemia, Gastritis, Diverticulosis presenting with abdominal pain, N/V and dizziness. On prior admission 10/2018 she was admitted for severe anemia. At that time she had an EGD +H.pylori and Colonoscopy negative for active bleed, 4mm polyp being, IH, diverticulosis. Pt denies being treated for HP infection. She reports that this was a one time episode and that she does not experience abdominal pain all the time. She felt dizzy after vomiting and had a headache so came to the ER. Pt denies any sick contacts, travel or abx use. ROS: A 12pt ROS was negative except as above. Past medical history: As stated in HPI Past surgical history: Denies Family history: Denies hematologic and oncologic problems Social history: Denies tobacco, alcohol, and illicit drug use Past Patient History - Past Medical History & Family History Past Medical History?: Yes - Past Social History Smoking Status: Never Smoked - CARDIAC Hx Cardiac Disorders: No - PULMONARY Hx Respiratory Disorders: No - NEUROLOGICAL Hx Neurological Disorder: No - HEENT Hx HEENT Problems: No - RENAL Hx Chronic Kidney Disease: No - ENDOCRINE/METABOLIC Hx Endocrine Disorders: Yes Other/Comment: "Thyroid surgery'' - HEMATOLOGICAL/ONCOLOGICAL Hx Anemia: Yes - INTEGUMENTARY Hx Dermatological Problems: No - MUSCULOSKELETAL/RHEUMATOLOGICAL Hx Arthritis: Yes - GASTROINTESTINAL Hx Gastrointestinal Disorders: No - GENITOURINARY/GYNECOLOGICAL Hx Genitourinary Disorders: No - PSYCHIATRIC Hx Substance Use: No - SURGICAL HISTORY Hx Appendectomy: Yes - ANESTHESIA Hx Anesthesia: Yes Hx Anesthesia Reactions: No Meds Allergies/Adverse Reactions: Allergies Allergy/AdvReac Type Severity Reaction Status Date / Time No Known Allergies Allergy Verified 04/03/19 04:57 - Medications Medications: Current Medications Amoxicillin (Amoxil 500 Mg Cap) 1,000 mg PO BID [facility]; Protocol Stop: 04/07/19 10:01 Clarithromycin (Biaxin Filmtab) 500 mg PO Q12H [facility]; Protocol Stop: 04/07/19 09:01 Enoxaparin Sodium (Lovenox) 30 mg SC DAILY [facility] Pantoprazole Sodium (Protonix Ec Tab) 40 mg PO BID [facility] Stop: 04/07/19 10:01 Physical Exam - Constitutional Appears: Non-toxic, No Acute Distress - Head Exam Head Exam: ATRAUMATIC, NORMAL INSPECTION, NORMOCEPHALIC - Eye Exam Eye Exam: EOMI, Normal appearance, PERRL - ENT Exam ENT Exam: Mucous Membranes Moist, Normal Exam - Neck Exam Neck exam: Positive for: Normal Inspection - Respiratory Exam Respiratory Exam: Clear to Auscultation Bilateral, NORMAL BREATHING PATTERN - Cardiovascular Exam Cardiovascular Exam: REGULAR RHYTHM, RRR, +S1, +S2 - GI/Abdominal Exam GI & Abdominal Exam: Normal Bowel Sounds, Soft. absent: Distended, Firm, Guarding, Organomegaly, Tenderness - Rectal Exam Rectal Exam: Deferred - Extremities Exam Extremities exam: Positive for: full ROM, normal inspection - Back Exam Back exam: FULL ROM, NORMAL INSPECTION - Neurological Exam Neurological exam: Alert, Oriented x3 - Psychiatric Exam Psychiatric exam: Normal Affect, Normal Mood - Skin Skin Exam: Dry, Intact, Normal Color, Warm Results - Vital Signs Recent Vital Signs: Last Vital Signs Temp 98.0 F 04/04/19 07:00 Pulse 63 04/04/19 07:00 Resp 20 04/04/19 07:00 BP 108/70 04/04/19 07:00 Pulse Ox 18 L 04/04/19 07:00 - Labs Result Diagrams: 04/03/19 05:35 04/03/19 05:35 Labs: Laboratory Results - last 24 hr 04/03/19 09:03 pO2 31 VBG pH 7.34 VBG pCO2 46 VBG HCO3 22.8 VBG Total CO2 26.2 VBG O2 Sat (Calc) 60.4 VBG Base Excess -1.3 L VBG Potassium 3.9 Sodium 143.0 Chloride 115.0 H Glucose 109 H Lactate 1.8 Venous Blood Potassium 3.9 Assessment & Plan - Assessment and Plan (Free Text) Assessment: 1. Abdominal pain/V/V-resolved ddx: viral gastroenteritis 2. H.pylori infection 3. Chronic Leukemia Plan: -Clinically improved, tolerating diet with normal BM -Pt with EGD 10/2018 +H.pylori infection-untreated per pt -Will start triple therapy for total 7 days -Pt will need to followup with PCP to confirm eradication of infection with a stool antigen test -Will continue to follow pt closely <Jeff,Jermaine Y - Last Filed: 04/04/19 15:04> Meds - Medications Medications: Current Medications Amoxicillin (Amoxil 500 Mg Cap) 1,000 mg PO BID [facility]; Protocol Stop: 04/07/19 10:01 Last Admin: 04/04/19 10:32 Dose: 1,000 mg Clarithromycin (Biaxin Filmtab) 500 mg PO Q12H [facility]; Protocol Stop: 04/07/19 09:01 Last Admin: 04/04/19 10:32 Dose: 500 mg Enoxaparin Sodium (Lovenox) 30 mg SC DAILY [facility] Last Admin: 04/04/19 10:32 Dose: 30 mg Pantoprazole Sodium (Protonix Ec Tab) 40 mg PO BID [facility] Stop: 04/07/19 10:01 Last Admin: 04/04/19 10:32 Dose: 40 mg Results - Vital Signs Recent Vital Signs: Last Vital Signs Temp 98.0 F 04/04/19 07:00 Pulse 73 04/04/19 11:39 Resp 20 04/04/19 07:00 BP 108/70 04/04/19 07:00 Pulse Ox 18 L 04/04/19 07:00 - Labs Result Diagrams: 04/03/19 05:35 04/03/19 05:35 Attending/Attestation - Attestation I have personally seen and examined this patient.: Yes I have fully participated in the care of the patient.: Yes I have reviewed all pertinent clinical information: Yes Notes (Text): 04/04/19 14:58 I have seen and examined patient. Agree with above documentation with the following additions. In brief, this is a 73 year old female with history of ?leukemia who presents to hospital with sudden onset dizziness, nausea, vomiting yesterday. She denies associated abdominal pain, fever/chills, weight loss, rectal bleeding, or change in bowel habits. Since arrival to hospital her symptoms have resolved and she ate chicken fingers and yakut friies today for lunch without difficulty. She had an EGD/colonoscopy in October 2018 which showed helicobacter pylori associated gastritis, diverticulosis, hemorrhoids. She was apparently not treated for Hpylori. ?leukemia Nausea, vomiting -resolved - Advance diet as tolerated - Begin triple antibiotic therapy for treatment of helicobacter pylori associated gastritis - Follow up hematology recommendations - Suggest outpatient follow up within 1 month for breath test confirmation of eradication - No further planned GI intervention at this time, will sign off case. Please reconsult as necessary, thank you.
[2019-04-04] MEDS ORDERED: Enoxaparin 30 mg Syringe SC SCH (10:00)
[2019-04-04] MEDS: Pantoprazole 40 mg EC Tab PO SCH ×2 (10:32→17:43)
--- NOTE | 2019-04-04 14:38 | CARD ---
APPROVED REPORT Date of service: 04/03/2019 EKG Measurement Heart [id number] <Conclusion> Normal sinus rhythm Normal ECG
[2019-04-04 16:01] VITALS: BP 106/60; PULSE 74; TEMP 97.9; O2SAT 94
--- NOTE | 2019-04-04 16:26 | CP.PCM.PN ---
Subjective - Date & Time of Evaluation Date of Evaluation: 04/04/19 Time of Evaluation: 16:26 - Subjective Subjective: alert, oriented, no sob or acute pain, no vomiting. Objective - Vital Signs/Intake and Output Vital Signs (last 24 hours): Temp Pulse Resp BP Pulse Ox 97.9 F 74 20 106/60 94 L 04/04/19 16:00 04/04/19 16:00 04/04/19 16:00 04/04/19 16:00 04/04/19 16:00 - Medications Medications: Current Medications Amoxicillin (Amoxil 500 Mg Cap) 1,000 mg PO BID [facility]; Protocol Stop: 04/07/19 10:01 Last Admin: 04/04/19 10:32 Dose: 1,000 mg Clarithromycin (Biaxin Filmtab) 500 mg PO Q12H [facility]; Protocol Stop: 04/07/19 09:01 Last Admin: 04/04/19 10:32 Dose: 500 mg Enoxaparin Sodium (Lovenox) 30 mg SC DAILY [facility] Last Admin: 04/04/19 10:32 Dose: 30 mg Pantoprazole Sodium (Protonix Ec Tab) 40 mg PO BID [facility] Stop: 04/07/19 10:01 Last Admin: 04/04/19 10:32 Dose: 40 mg - Labs Labs: 04/03/19 05:35 04/03/19 05:35 Assessment and Plan - Assessment and Plan (Free Text) Assessment: patient admitted with nausea, abdominal pain, seen and examined. Alert, oriented denies abdominal pain or distress. Cleared by the GI, Plan to discharge home with triple antibiotic treatment as advised by GI. Advised to fow up with GI and Oncology as advised.
--- NOTE | 2019-04-04 20:24 | CP.PCM.PN ---
Subjective - Date & Time of Evaluation Date of Evaluation: 04/04/19 - Subjective Subjective: patient examined today no nausea no vomitng no dizziness no shortness of breath no diarrhea no fever Objective - Vital Signs/Intake and Output Vital Signs (last 24 hours): Temp Pulse Resp BP Pulse Ox 97.9 F 74 20 106/60 94 L 04/04/19 16:00 04/04/19 16:00 04/04/19 16:00 04/04/19 16:00 04/04/19 16:00 - Medications Medications: Current Medications Amoxicillin (Amoxil 500 Mg Cap) 1,000 mg PO BID [facility]; Protocol Stop: 04/07/19 10:01 Last Admin: 04/04/19 17:43 Dose: 1,000 mg Clarithromycin (Biaxin Filmtab) 500 mg PO Q12H [facility]; Protocol Stop: 04/07/19 09:01 Last Admin: 04/04/19 10:32 Dose: 500 mg Enoxaparin Sodium (Lovenox) 30 mg SC DAILY [facility] Last Admin: 04/04/19 10:32 Dose: 30 mg Pantoprazole Sodium (Protonix Ec Tab) 40 mg PO BID [facility] Stop: 04/07/19 10:01 Last Admin: 04/04/19 17:43 Dose: 40 mg - Labs Labs: 04/03/19 05:35 04/03/19 05:35 - Constitutional Appears: Well - Head Exam Head Exam: ATRAUMATIC, NORMAL INSPECTION, NORMOCEPHALIC - Eye Exam Eye Exam: EOMI, Normal appearance, PERRL Pupil Exam: NORMAL ACCOMODATION, PERRL - ENT Exam ENT Exam: Mucous Membranes Moist, Normal Exam - Neck Exam Neck Exam: Full ROM, Normal Inspection. absent: Lymphadenopathy - Respiratory Exam Respiratory Exam: Decreased Breath Sounds - Cardiovascular Exam Cardiovascular Exam: REGULAR RHYTHM, +S1, +S2 - GI/Abdominal Exam GI & Abdominal Exam: Soft, Diminished Bowel Sounds - Rectal Exam Rectal Exam: Deferred - Neurological Exam Neurological Exam: Oriented x3 Assessment and Plan - Assessment and Plan (Free Text) Assessment: moderate complexity of care plan discussed with patient labs reviewed vitals reviewed medications reviewed amoxil biaxin filmtab lovenox protonix ec tab
--- NOTE | 2019-04-04 21:39 | CP.PCM.CON ---
History of Present Illness - History of Present Illness History of Present Illness: 73 year old female with a history of GERD, MDS on intermittent Procrit, admitted with dizziness. The patient notes to feeling weak and dizzy, which prompted her to come to the hospital. She denies abnormal bleeding and bruising. She denies fevers and chills. She notes her dizziness has resolved. Past medical history: GERD, MDS Past surgical history: Denies Family history: Denies hematologic and oncologic problems Social history: Denies tobacco, alcohol, and illicit drug use Allergies: NKA Review of systems: All remaining review of systems including HEENT, cardiovascular, respiratory, gasrtointestinal, genitourinary, musculoskeletal, dermatologic, neurologic, and psychiatric are negative unless mentioned in the HPI. Past Patient History - Past Medical History & Family History Past Medical History?: Yes - Past Social History Smoking Status: Never Smoked - CARDIAC Hx Cardiac Disorders: No - PULMONARY Hx Respiratory Disorders: No - NEUROLOGICAL Hx Neurological Disorder: No - HEENT Hx HEENT Problems: No - RENAL Hx Chronic Kidney Disease: No - ENDOCRINE/METABOLIC Hx Endocrine Disorders: Yes Other/Comment: "Thyroid surgery'' - HEMATOLOGICAL/ONCOLOGICAL Hx Anemia: Yes - INTEGUMENTARY Hx Dermatological Problems: No - MUSCULOSKELETAL/RHEUMATOLOGICAL Hx Arthritis: Yes - GASTROINTESTINAL Hx Gastrointestinal Disorders: No - GENITOURINARY/GYNECOLOGICAL Hx Genitourinary Disorders: No - PSYCHIATRIC Hx Substance Use: No - SURGICAL HISTORY Hx Appendectomy: Yes - ANESTHESIA Hx Anesthesia: Yes Hx Anesthesia Reactions: No Meds Home Medications: Home Medication List Medication Instructions Recorded Confirmed Type Amoxicillin [Amoxil 500 mg Cap] 1,000 mg PO BID #14 cap 04/04/19 Rx Clarithromycin [Biaxin Filmtab] 500 mg PO Q12H #14 tab 04/04/19 Rx Pantoprazole [Protonix EC Tab] 40 mg PO BID #14 ect 04/04/19 Rx Allergies/Adverse Reactions: Allergies Allergy/AdvReac Type Severity Reaction Status Date / Time No Known Allergies Allergy Verified 04/03/19 04:57 Physical Exam - Head Exam Head Exam: ATRAUMATIC - Eye Exam Eye Exam: Normal appearance - ENT Exam ENT Exam: Mucous Membranes Dry - Respiratory Exam Respiratory Exam: NORMAL BREATHING PATTERN - Cardiovascular Exam Cardiovascular Exam: +S1, +S2 - GI/Abdominal Exam GI & Abdominal Exam: Normal Bowel Sounds - Extremities Exam Extremities exam: Positive for: normal inspection - Neurological Exam Neurological exam: Oriented x3 - Psychiatric Exam Psychiatric exam: Normal Affect, Normal Mood - Skin Skin Exam: Warm Results - Vital Signs Recent Vital Signs: Last Vital Signs Temp 97.9 F 04/04/19 16:00 Pulse 74 04/04/19 16:00 Resp 20 04/04/19 16:00 BP 106/60 04/04/19 16:00 Pulse Ox 94 L 04/04/19 16:00 - Labs Result Diagrams: 04/03/19 05:35 04/03/19 05:35 Assessment & Plan (1) Anemia Assessment and Plan: secondary to MDS outpatient Procrit Status: Acute (2) Leukopenia Assessment and Plan: mild no neutropenia likely secondary to MDS Thank you for this interesting consult. Status: Acute
== END 2019-04-04 21:02 | disposition home or self-care (01) ==
LOC: C.ER 04:40 → C.9E 08:57 → C.6T 10:22
PROVIDERS: ADMIT Internal Medicine Nephrology; ATTEND Internal Medicine Nephrology
DX: R10.9 Unspecified abdominal pain (principal); R11.2 Nausea with vomiting, unspecified; B96.81 Helicobacter pylori [H. pylori] as the cause of diseases classified elsewhere; C95.10 Chronic leukemia of unspecified cell type not having achieved remission; D72.819 Decreased white blood cell count, unspecified; K21.9 Gastro-esophageal reflux disease without esophagitis; K29.70 Gastritis, unspecified, without bleeding; K57.90 Diverticulosis of intestine, part unspecified, without perforation or abscess without bleeding; K64.9 Unspecified hemorrhoids; I10 Essential (primary) hypertension
CPT/HCPCS: 70450; 80053; 82803; 84484; 85025; 93005; 96374; 99285; G0378; J1650; J2765; J7030; J7040